=== PATIENT | female | born 1940 | race Caucasian/White ===

== ENCOUNTER 2023-03-05 12:16 | Emergency (ER) | payer MEDICARE, SELFPAY ==
--- NOTE | ~2023-03-05 | XR_ITS ---
EXAMINATION: XR ankle RT min 3V DATE: 03/05/2023 13:24 INDICATION: Right ankle pain and swelling. TECHNIQUE: 4 views of right ankle were obtained. COMPARISON: None. FINDINGS: Bone alignment is normal. No fracture. Joint spaces are normal. There is heterotopic ossifi cation distal to medial malleolus and dorsal to proximal aspect of navicular. There are enthesophytes at the posterior and plantar aspects of calcaneal tuberosity. Ankle soft tissue swelling is noted. IMPRESSION: 1. No acute fracture. 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 IMPRESSION: 1. No acute fracture.
[2023-03-05 12:18] VITALS: BP 134/55; PULSE 61; RESP 18; TEMP 36.6; O2SAT 98
--- NOTE | 2023-03-05 14:15 | PC.NURSE ---
Lesly Marie NP reports pt and pt daughter requesting to leave AMA. AMA forms were collected but on the way to bring them to pt room, pt was not in the room and was seen walking out the front doors before signing. daughter stand by assist and gait was steady.
--- NOTE | 2023-03-05 20:16 | ED.GENADULT ---
HPI - General Adult General Chief complaint: Extremity Injury, Lower Stated complaint: right foot pain/injury Time Seen by Provider: 03/05/23 13:27 History of Present Illness HPI narrative: Simran Mercer is an 82 y/o female who presents today with her daughter. Patient reports she was getting up out of her recliner and rolled her right foot under her then fell on to bottom and leaned against a planter. She denies hitting her head/ denies LOC/ denies taking any blood thinners. complains of pain to right ankle. Related Data Allergies Allergy/AdvReac Type Severity Reaction Status Date / Time No Known Allergies Allergy Unknown Unverified 07/03/05 20:44 Review of Systems Review of Systems: CONSTITUTIONAL: Denies fever, chills, or sweats. EYES: Denies visual changes, redness, or discharge. ENT: Denies rhinorrhea, congestion, sore throat, or otalgia. CARDIOVASCULAR: Denies chest pain, palpitations, or edema. RESPIRATORY: Denies cough or dyspnea. GASTROINTESTINAL: Denies abdominal pain, nausea, vomiting, or diarrhea. GENITOURINARY: Denies dysuria or hematuria. SKIN: Denies rash or itching. MUSCULOSKELETAL: fall 3 days ago/ pain to right ankle NEUROLOGIC: Denies headache, numbness, dizziness, or weakness. PSYCHIATRIC: Denies anxiety or depression. Exam Narrative: GENERAL: Well-appearing, well-nourished, and in no acute distress. HEAD: Normocephalic, atraumatic. EYES: PERRLA and EOMI. ENT: Nares clear, no rhinorrhea or epistaxis. Mucous membranes moist. Oropharynx without tonsillar hypertrophy exudate or other lesions. Bilateral TMs pearly barnett nonbulging NECK: Supple. No adenopathy or masses. No carotid bruits or JVD CHEST: Clear to auscultation. No respiratory distress. No wheezes rales or rhonchi HEART: Regular rate and rhythm. No murmur heard. Normal peripheral pulses. ABDOMEN: Soft, nontender, nondistended, normal active bowel sounds. EXTREMITIES: ecchymosis and swelling noted to right foot/ankle/ pulses present/ SKIN: Warm, dry, no rash. NEURO: No focal deficits. Alert and oriented x3. PSYCH: Normal mood and affect. Patient Course Vital Signs Vital signs: Vital Signs Temperature 36.6 C 03/05/23 12:18 Pulse Rate 61 03/05/23 12:18 Respiratory Rate 18 03/05/23 12:18 Blood Pressure 134/55 L 03/05/23 12:18 Pulse Oximetry 98 03/05/23 12:18 Oxygen Delivery Room Air 03/05/23 12:18 Temperature 36.6 C 03/05/23 12:18 Pulse Rate 61 03/05/23 12:18 Respiratory Rate 18 03/05/23 12:18 Blood Pressure 134/55 L 03/05/23 12:18 Pulse Oximetry 98 03/05/23 12:18 Oxygen Delivery Room Air 03/05/23 12:18 Medical Decision Making MDM Narrative Medical decision making narrative: While attempting to assess pt and discussing that pt's ankle x ray is negative for fracture updated pt and her family that an x ray of her foot should be done to make sure her foot does not have anything broken This comment seemed to upset the daughter and she demanded that they will not wait any longer here for any more tests. I tried to evaluate for other injuries from the fall such as her cervical spine/hips/back and the daughter refused to allow me and states that the fall happened 3 days ago and she has been walking just fine since the fall and she will have her follow up with her PCP on Wednesday The daughter continued to state that she (herself not mother) is a diabetic she has not eaten all day and she will be taking her mother from the ER now The daughter did become aggressive and raised her voice about the frustration of the wait. I apologized for the wait and encouraged her to stay for more imaging/ pain control and that if she left it would be AMA. The daughter stated 'its not your fault, I am not made at you - I just can't stay in this room any longer The daughter demanded paperwork to leave and stated she would not stay I tried to talk to the patient regarding this and the patient apologized for
== END 2023-03-05 14:20 | disposition left against medical advice (07) ==
PROVIDERS: Emergency Provider Nurse Practitioner Family; PCP Internal Medicine
DX: S93.401A Sprain of unspecified ligament of right ankle, initial encounter (principal); S96.911A Strain of unspecified muscle and tendon at ankle and foot level, right foot, initial encounter; W01.198A Fall on same level from slipping, tripping and stumbling with subsequent striking against other object, initial encounter; X50.9XXA Other and unspecified overexertion or strenuous movements or postures, initial encounter
CPT/HCPCS: 73610; 99283

== ENCOUNTER 2024-10-30 11:16 | Emergency (ER) | payer MEDICARE, SELFPAY ==
[2024-10-30 11:47] VITALS: BP 136/65; PULSE 75; RESP 16; TEMP 36.6; O2SAT 97
--- NOTE | 2024-10-30 11:54 | ED_ITS ---
HPI - Dental/Oral General Chief complaint: Dental/Oral <Elvira Anand APRN - Last Filed: 10/30/24 12:00> Stated complaint: dental pain <Elvira Anand APRN - Last Filed: 10/30/24 12:00> Time Seen by Provider: 10/30/24 11:45 <Elvira Anand APRN - Last Filed: 10/30/24 12:00> Focused HPI: Patient is an 84-year-old female who presents to the ER with complaints of a dental abscess. She reports her lower jaw pain started approximately 2 days ago. Patient reports she has a dentist who she is supposed to see and 2 days. She endorses significant left lower jaw swelling and associated pain. Patient denies other medical history related to this ER visit, although according to her records she does take medication to treat high cholesterol and high blood pressure. She denies any difficulty breathing, neck stiffness, recent fevers, headache, neck swelling. GENERAL: Well-appearing, well-nourished, and in no acute distress. HEAD: Normocephalic, atraumatic. L sided lower palpable jaw swelling CHEST: Clear to auscultation. ?No respiratory distress. HEART: Regular rate and rhythm.? NEURO: ?Alert and oriented x3. Patient screened in triage and initial orders placed.? ?Additional care and disposition to be based upon?diagnostic testing and treatment. <Elvira Anand APRN - Last Filed: 10/30/24 12:00> Related Data Home medications: Home Medications ?Medication ?Instructions ?Recorded ?Confirmed ?Last Taken ?Type ascorbic acid (vitamin C) 1,000 mg 1 g PO DAILY 01/03/24 07/06/24 Unknown History tablet (Vitamin C With Adelita Hips) aspirin 81 mg tablet,delayed 81 mg PO DAILY 01/03/24 07/06/24 Unknown History release <Elvira Anand APRN - Last Filed: 10/30/24 12:00> Allergies/adverse reactions: Allergies Allergy/AdvReac Type Severity Reaction Status Date / Time No Known Allergies Allergy Unknown Unverified 07/06/24 08:53 <Elvira Anand APRN - Last Filed: 10/30/24 12:00> PMFSH Family History Family History: Family History (Updated 01/03/24 @ 09:47 by Minerva Herzog) Father Hypertension Mother Hypertension Cancer Sibling Alcoholism Diabetes mellitus Hypertension <Elvira Anand APRN - Last Filed: 10/30/24 12:00> Social History Social History: Social History (Updated 01/03/24 @ 09:49 by Minerva Herzog) Smoking status: Never smoker Alcohol intake: never Substance use: never Substance use type: does not use <Elvira Anand APRN - Last Filed: 10/30/24 12:00> Exam Narrative: APPEARANCE: No apparent distress. Head: atraumatic. Swelling along the left lower jaw line, floor of the mouth is soft, no difficulty speaking or swallowing EYES: EOMI, NOSE: Atraumatic NECK: Trachea midline RESPIRATORY: No increased rate of breathing CARDIOVASCULAR: RRR, ABDOMINAL: Non-distended MUSCULOSKELETAl: No obvious deformities NEURO: Alert. Moving 4/4 extremities SKIN:: Warm, dry. Normal color PSYCHIATRIC: Normal affect <Archie Landaverde MD - Last Filed: 10/30/24 13:37> Course Vital Signs Vital signs: Vital Signs Temperature 97.8 F 10/30/24 11:47 Pulse Rate 75 10/30/24 11:47 Respiratory Rate 16 10/30/24 11:47 Blood Pressure 136/65 10/30/24 11:47 Pulse Oximetry 97 10/30/24 11:47 Oxygen Delivery Room Air 10/30/24 11:47 Temperature 97.8 F 10/30/24 11:47 Pulse Rate 75 10/30/24 11:47 Respiratory Rate 16 10/30/24 11:47 Blood Pressure 136/65 10/30/24 11:47 Pulse Oximetry 97 10/30/24 11:47 Oxygen Delivery Room Air 10/30/24 11:47 <Elvira Anand APRN - Last Filed: 10/30/24 12:00> Vital Signs Temperature 97.8 F 10/30/24 11:47 Pulse Rate 75 10/30/24 11:47 Respiratory Rate 16 10/30/24 11:47 Blood Pressure 136/65 10/30/24 11:47 Pulse Oximetry 97 10/30/24 11:47 Oxygen Delivery Room Air 10/30/24 11:47 Temperature 97.8 F 10/30/24 11:47 Pulse Rate 75 10/30/24 11:47 Respiratory Rate 16 10/30/24 11:47 Blood Pressure 136/65 10/30/24 11:47 Pulse Oximetry 97 10/30/24 11:47 Oxygen Delivery Room Air 10/30/24 11:47 <Archie Landaverde MD - Last Filed: 10/30/24 13:37> MDM - Dental/Oral MDM Narrative Medical decision making narrative: -Course: 84-year-old female presenting with dental pain. Given pain medication antibiotics. Follow-up with dentist tomorrow. <Archie Landaverde MD - Last Filed: 10/30/24 13:37> Discharge Plan Discharge Clinical Impression: Dental infection <Elvira Anand APRN - Last Filed: 10/30/24 12:00> Patient Disposition: Home, Self-Care <Elvira Anand APRN - Last Filed: 10/30/24 12:00> Condition: Stable <Elvira Anand APRN - Last Filed: 10/30/24 12:00> Instructions: Antibiotic Form, Toothache (ED) <Elvira Anand APRN - Last Filed: 10/30/24 12:00> Additional Instructions: Please take antibiotics as instructed. Follow up with her dentist tomorrow. Use Tylenol for pain control. <Elvira Anand APRN - Last Filed: 10/30/24 12:00> Patient Language: Armenian <Elvira Anand APRN - Last Filed: 10/30/24 12:00> Prescriptions: New acetaminophen 500 mg tablet 1,000 mg PO TID PRN (Reason: loreta) 7 Days Qty: 42 0RF amoxicillin-pot clavulanate 875-125 mg tablet 1 tablet PO Q12H Qty: 20 0RF No Action ascorbic acid (vitamin C) [Vitamin C With Adelita Hips] 1,000 mg tablet 1 g PO DAILY citalopram 20 mg tablet 20 mg PO DAILY Qty: 90 1RF aspirin 81 mg tablet,delayed release (DR/EC) 81 mg PO DAILY diltiazem HCl 240 mg capsule,extended release 24 hr See Rx Instructions .ROUTE .COMPLEX Qty: 180 0RF Dose Instruction: Take 1 capsule by mouth twice daily Rx Instructions: Take 1 capsule by mouth twice daily furosemide 20 mg tablet See Rx Instructions .ROUTE .COMPLEX Qty: 90 0RF Dose Instruction: Take 1 tablet by mouth once daily Rx Instructions: Take 1 tablet by mouth once daily atorvastatin 40 mg tablet See Rx Instructions .ROUTE .COMPLEX Qty: 90 0RF Dose Instruction: Take 1 tablet by mouth once daily Rx Instructions: Take 1 tablet by mouth once daily <Elvira Anand APRN - Last Filed: 10/30/24 12:00> Follow-up/Referrals: Le Wolfe APRN [Primary Care Provider] - <Elvira Anand APRN - Last Filed: 10/30/24 12:00> Stand Alone Forms: Work/School Release IP <Elvira Anand APRN - Last Filed: 10/30/24 12:00>
[2024-10-30] MEDS: KETOROLAC 30 MG/ML VIAL (*BKC) IM (12:16)
[2024-10-30] MEDS: AMOXICILLIN/CLAVULANATE K 875-125 MG TAB 1 TABLET PO (12:17)
--- OUTSIDE RECORDS SUMMARY | 2024-10-30 12:18 | XMS_ITS | Continuity of Care Document ---
Author Organization [facility] Address [address] [place] [address] [address] [place] [address] Phone Care Team Providers Care Warp Worker Name Role Phone Mccain OD, Kwame Unavailable Unavailable Procedures Procedure Date Eye Exam & Treatment No Script Eye Exam & Treatment Refraction Advance Directives Directive Yes / No Effective Date File Name No Information Encounters Encounter Description Practice Location Reason(s) For Visit Diagnoses Date Provider Providers Copied on Encounter [facility], [address] [place] [address] [address], [place], [place], [id number], tel:[phone] [facility] No Information Oct-0 8-200 9 Mccain OD Kwame. [address] , [address], [place], [place], [facility] [place]. tel:[phone] [facility], [address] [place] [address] [address], [place], [place], [id number], tel:[phone] [facility] No Information February-0 2-200 8 Mccain OD Kwame. [address] , [address], [place], [address], [place]. tel:[phone] Family History Family Member Type Diagnosis Age At Onset No Information Payers Payer name Insurance type Covered republican ID Authoriza tion(s) Medicare [facility] [id number] Social History Type Description Quantity Date Captured Comments Sex Female Smoking Status No Information Chief Complaint And Reason For Visit No Information Reason For Referral Reason For Referral No Information History Of Present Illness Encounter Date Complaint History Of Prese nt Illness No Information Functional Status Date Functional Assessmen t No Information Instructions Date Instruction Additional Infor mation No Information Assessments Type Assessment Date No Information Patient Care Teams Name Effective Dates (start - stop) Status Members No Information
--- OUTSIDE RECORDS SUMMARY | 2024-10-30 12:18 | XMS_ITS | CONTINUITY OF CARE DOCUMENT ---
Author Name dawson osman Address Unknown Organization [facility] Address [address] [address] [address] [place] [address] Phone [phone] Care Team Providers Care Armature Bander Name Role Phone Obie ROSSI, Pascual Unavailable BOLIVAR SOTO MD Unavailable [phone] BOLIVAR SOTO MD Unavailable PROBLEMS Condition Status Date Provider Notes Afib active Pascual Ragland MD Palpitations active Pascual Ragland MD INSURANCE PROVIDERS Payer name Policy type / Coverage type [place] red democrat ID [facility] [id number] [place] [id number] HISTORY OF PROCEDURES Procedure Date Procedure Name Provider Procedure Notes S tatus ZIO Event Hookup Pascual Ragland MD completed
--- OUTSIDE RECORDS SUMMARY | 2024-10-30 12:45 | XMS_ITS | CONTINUITY OF CARE DOCUMENT ---
Author Name dawson osman Address Unknown Organization [facility] Address [address] [facility] [address] [place] [address] Phone [phone] Care Team Providers Care Boom Stick Worker Name Role Phone Obie ROSSI, Pascual Unavailable [phone] BOLIVAR SOTO MD Unavailable BOLIVAR SOTO MD Unavailable PROBLEMS Condition Status Date Provider Notes Afib active Pascual Ragland MD Palpitations active Pascual Ragland MD INSURANCE PROVIDERS Payer name Policy type / Coverage type [place] red democrat ID [facility] [id number] [place] Medicare [id number] HISTORY OF PROCEDURES Procedure Date Procedure Name Provider Procedure Notes S tatus ZIO Event Hookup Pascual Ragland MD completed
--- OUTSIDE RECORDS SUMMARY | 2024-10-30 12:45 | XMS_ITS | Continuity of Care Document ---
Author Organization [facility] Address [address] [place] [address] [address] [place] [address] Phone Care Team Providers Care Tree Tapping Laborer Name Role Phone Mccain OD, Kwame Unavailable Unavailable Procedures Procedure Date Eye Exam & Treatment No Script Eye Exam & Treatment Refraction Advance Directives Directive Yes / No Effective Date File Name No Information Encounters Encounter Description Practice Location Reason(s) For Visit Diagnoses Date Provider Providers Copied on Encounter [facility], [address] [place] [address] [address], [place], [place], [id number], tel:[phone] [facility] No Information Oct-0 8-200 9 Mccain OD Kwame. [address] , [address], [place], [place], [facility], [place]. tel:[phone] [facility], [address] [place] [address] [address], [place], [place], [id number], tel:[phone] [facility] No Information February-0 2-200 8 Mccain OD Kwame. [address] , [address], [place], [address], [place]. tel:[phone] Family History Family Member Type Diagnosis Age At Onset No Information Payers Payer name Insurance type Covered libertarian ID Authoriza tion(s) Medicare [facility] [id number] Social History Type Description Quantity Date Captured [...]
[2024-10-30 13:46] VITALS: BP 130/88; PULSE 78; RESP 18; TEMP 36.6; O2SAT 98
== END 2024-10-30 13:46 | disposition home or self-care (01) ==
PROVIDERS: Emergency Provider Emergency Medicine; PCP Nurse Practitioner Family
DX: K04.7 Periapical abscess without sinus (principal)
CPT/HCPCS: 96372; 99284; A9270; J1885

== ENCOUNTER 2025-09-11 17:42 | Inpatient (IN) | payer MEDICARE, SELFPAY ==
[2025-09-11] VITALS (12 sets, daily range): BP systolic 141–164; BP diastolic 56–69; PULSE 64–88; RESP 18–20; TEMP 36.9–38; O2SAT 92–99; BMI 28.0
--- NOTE | ~2025-09-11 | XR_ITS ---
EXAM/PROCEDURE: XR surgery orthopedic HISTORY: LEFT HIP PINNING COMPARISON: None available. Technique: Fluoroscopic images provided for orthopedic procedure. Fluoroscopy time: 29.0 seconds DAP: 1.6504 tori per square centimeter IMPRESSION: Fluoroscopic images per orthopedic service. No radiologist present. See also operative/surgical notes for complete details. 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
--- NOTE | ~2025-09-11 | XR_ITS ---
EXAMINATION: XR hip LT 2V w AP pelvis DATE: 09/11/2025 18:10 INDICATION: Trauma due to fall. TECHNIQUE: AP pelvis and 3 views of left hip were obtained. COMPARISON: None. FINDINGS: Diffuse osteopenia of bones. Acute, impacted fracture of the subcapital femoral neck is noted at the left hip. IMPRESSION: 1. Acute impacted fracture of the femoral neck at the left hip. Osteopenic bones. Please correlate with DEXA densitometry. Reviewed, dictated and finalized at location T. 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 Acute impacted fracture of the femoral neck at the left hip. Osteopenic bone s. Please correlate with DEXA densitometry.
--- NOTE | ~2025-09-11 | XR_ITS ---
EXAMINATION: XR chest 1V DATE: 09/11/2025 18:10 INDICATION: Trauma. TECHNIQUE: A single frontal view of the chest was obtained. COMPARISON: None. FINDINGS: Heart size is upper normal. Lungs are clear of acute processes. IMPRESSION: 1. No acute pulmonary findings. Reviewed, dictated and finalized at location T. [facility]
--- NOTE | 2025-09-11 18:13 | PC.NURSE ---
pts daughter sindy called for an update. advised her that xrays were just taken and i would give her a call back once we have those results.
[2025-09-11 18:34] LABS: Hematocrit 41.4 % (37.0-47.0); Hemoglobin 13.8 g/dL (12.0-15.0); Immature Granulocyte Percent A 0.6 % (0-0.5); Lymphocytes Absolute Auto 1.23 K/mm3 (0.9-3.2); Mean Corpuscular HGB Conc 33.3 g/dl (32-36); Mean Corpuscular Hemoglobin 29.7 pg (26-34); Mean Corpuscular Volume 89.0 fl (80-100); Nucleated Red Blood Cells Absolute Auto 0.000 K/mm3 (0.0-0.012); Nucleated Red Blood Cells Perc 0.0 % (0.0-0.2); Platelet Count Result 198 k/mm3 (150-375); Red Blood Count 4.65 M/mm3 (4.2-5.4); White Blood Count 15.9 K/mm3 (4.5-10.0)
[2025-09-11] MEDS: HYDROcodone/acetaminophen (*CRX) 5-325 MG TABLET 1 TAB PO (18:36)
[2025-09-11 18:45] LABS: Anion Gap 10 mmol/L (4-12); Blood Urea Nitrogen 15 mg/dL (7-17); Calcium 9.3 mg/dL (8.4-10.2); Carbon Dioxide 23 mmol/L (22-30); Chloride 104 mmol/L (98-107); Estimated Glomerular Filt Rate 58; Glucose 132 mg/dL (65-110); Potassium 4.7 mmol/L (3.4-5.0); Sodium 137 mmol/L (137-145)
[2025-09-11 18:53] LABS: INR 1.1; Prothrombin Time 13.9 Seconds (11.1-14.7)
[2025-09-11 18:54] LABS: Partial Thromboplastin Time 23.1 Seconds (22.3-36.8)
--- NOTE | 2025-09-11 19:14 | ED.FALL ---
HPI - Fall General Chief Complaint: Fall Stated Complaint: fall, hip pain Time Seen by Provider: 09/11/25 17:53 History of Present Illness HPI Narrative: Patient was lying in her recliner when she accidentally fell out, landing on her left hip. She did not hit her head, did not injure any of her other extremities. Has pain to her left hip especially worse with movement Related Data Home Medications ?Medication ?Instructions ?Recorded ?Confirmed ?Last Taken ?Type ascorbic acid (vitamin C) 1,000 mg 1 g PO DAILY 01/03/24 07/26/25 Unknown History tablet (Vitamin C With Adelita Hips) aspirin 81 mg tablet,delayed 81 mg PO DAILY 01/03/24 07/26/25 Unknown History release cetirizine 10 mg tablet (Zyrtec) 10 mg PO DAILY PRN 07/26/25 07/26/25 Unknown History Allergies Allergy/AdvReac Type Severity Reaction Status Date / Time No Known Allergies Allergy Unknown Verified 09/11/25 17:48 Review of Systems Review of Systems: All systems reviewed & are unremarkable except as noted in HPI and below PMFSH Family History Family History Father Hypertension Mother Hypertension Cancer Sibling Alcoholism Diabetes mellitus Hypertension Social History Social History Smoking status: Never smoker Alcohol intake: never Substance use: never Substance use type: does not use Exam Narrative: EXAMINATION OF ORGAN SYSTEMS/BODY AREAS: Constitutional: Vital signs per nursing GENERAL: Appears quite uncomfortable HEAD: Normal with no signs of head trauma. EYES: EOMI, conjunctiva normal ENT: Hearing grossly intact LUNGS: Nonlabored breathing. HEART: Normal left DP pulse ABD: [Soft], [nontender to palpation] EXT: Significant tenderness to left hip SKIN: Some old-appearing bruises to right leg NEURO: [Alert. No gross focal sensory or strength deficits.] PSYCH: Normal affect Course Vital Signs Vital signs: Vital Signs Temperature 98.4 F 09/11/25 17:39 Pulse Rate 64 09/11/25 17:39 Respiratory Rate 18 09/11/25 17:39 Blood Pressure 141/69 H 09/11/25 17:39 Pulse Oximetry 96 09/11/25 17:39 Oxygen Delivery Room Air 09/11/25 17:39 Temperature 98.4 F 09/11/25 17:39 Pulse Rate 73 09/11/25 21:01 Respiratory Rate 20 09/11/25 21:01 Blood Pressure 156/62 H 09/11/25 21:01 Pulse Oximetry 95 09/11/25 21:01 Oxygen Delivery Room Air 09/11/25 17:39 MDM MDM Narrative Medical decision making narrative: Patient presents here after falling out of her recliner and landing on her left hip, did not hit her head, is not having pain anywhere other than to her hip. Neurovascularly intact, significant tenderness to the left hip, x-ray on my independent interpretation does show left hip fracture. Discussed with orthopedist with plan for surgery tomorrow. Patient is comfortable with this plan. Hospitalist agreeable to admission. Differential Diagnosis Differential Diagnosis: Fracture, sprain Lab Data 09/11/25 18:27 09/11/25 18:27 Labs: Lab Results 09/11/25 Range/Units 18:27 WBC 15.9 H (4.5-10.0) K/mm3 RBC 4.65 (4.2-5.4) M/mm3 Hgb 13.8 (12.0-15.0) g/dL Hct 41.4 (37.0-47.0) % MCV 89.0 (80-100) fl MCH 29.7 (26-34) pg MCHC 33.3 (32-36) g/dl RDW 14.8 H (11.5-14.5) % Plt Count 198 (150-375) k/mm3 MPV 10.5 H (7.4-10.4) fl Immature Gran % (Auto) 0.6 H (0-0.5) % Neut % (Auto) 85.2 H (45.5-73.1) % Lymph % (Auto) 7.8 L (18.3-44.2) % [place] % (Auto) 6.1 (2.6-8.5) % Eos % (Auto) 0.0 (0-4.4) % Baso % (Auto) 0.3 (0.2-1.2) % Lymph # (Auto) 1.23 (0.9-3.2) K/mm3 [place] # (Auto) 1.0 H (0.1-0.6) K/mm3 Eos # (Auto) 0.0 (0-0.3) K/mm3 Baso # (Auto) 0.0 (0.0-0.1) K/mm3 Abs Immat Gran (auto) 0.09 H (0.00-0.031) K/mm3 Absolute Neuts (auto) 13.5 H (1.3-6.7) K/mm3 Absolute Nucleated RBC 0.000 (0.0-0.012) K/mm3 Nucleated RBC % 0.0 (0.0-0.2) % PT 13.9 (11.1-14.7) Seconds INR 1.1 APTT 23.1 (22.3-36.8) Seconds Sodium 137 (137-145) mmol/L Potassium 4.7 (3.4-5.0) mmol/L Chloride 104 (98-107) mmol/L Carbon Dioxide 23 (22-30) mmol/L Anion Gap 10 (4-12) mmol/L BUN 15 (7-17) mg/dL Creatinine 0.91 (0.7-1.0) mg/dL Estim Creat Clear Calc Not Reportable Estimated GFR 58 L (59 - ) Glucose 132 H (65-110) mg/dL Calcium 9.3 (8.4-10.2) mg/dL Blood Type O Negative Antibody Screen Negative Imaging Data Radiologist's impression: ITS Impressions Hip/Pelvis X-Ray 09/11/25 18:12 IMPRESSION: 1. Acute impacted fracture of the femoral neck at the left hip. Osteopenic bones. Please correlate with DEXA densitometry. Chest X-Ray 09/11/25 18:15 IMPRESSION: 1. No acute pulmonary findings. Discharge Plan Discharge Clinical Impression: Closed hip fracture Patient Disposition: Still a Patient Condition: Stable
--- NOTE | 2025-09-11 21:00 | ECG_ITS ---
Test Date: 2025-09-11 21:26:06 Measurements Intervals [place] Rate: 77 P: 0 DE: 0 QRS: -38 QRSD: 90 T: 86 QT: 385 QTc: 437 Interpretive Statements ATRIAL FIBRILLATION LEFT AXIS DEVIATION ANTEROSEPTAL INFARCT, AGE INDETERMINATE BORDERLINE ST-T WAVE ABNORMALITY- HIGH LATERAL LEADS BASELINE ARTIFACT- I, II, III, AVR, AVL, AVF, V2, V4-V6 ABNORMAL ECG No previous ECG available for comparison Electronically Signed On 09-12-2025 06:22:20 MACHINIST JOB SETTER by Niranjan Landaverde D.O.
--- NOTE | 2025-09-11 22:15 | WPCEDHO ---
ED Hand Off Checklist All vitals saved:yes IV Site documented:yes All med administrations documented:yes Triage Note Triage Note Pt. to ED by [facility] from 09/11/25 17:39 home. Pt. states she slipped on hard wood floor this morning, landing on her L. hip. Pt. has only been able to take a few steps since the fall. -hit head, -anticoagulants, -LOC. Bruising to lateral R. thigh. Pain to L. hip that radiates down her L. leg . No obvious deformity or shortening of her leg. Pt. is A& Ox4. Allergies No Known Allergies Allergy (Unknown, Verified 09/11/25 17:48) PER CARRIE Family History (Last Reviewed 07/26/25 @ 07:06 by Jasmyn Bahena [facility]) Father Hypertension Mother Hypertension Cancer Sibling Alcoholism Diabetes mellitus Hypertension Administered/Completed Medications Discontinued Medications Hydrocodone Bitart/Acetaminophen (Hydrocodone/Acetaminophen (*Crx) 5-325 Mg Tablet) 1 tab PO ONCE STA Stop: 09/11/25 18:14 Last Admin: 09/11/25 18:36 Dose: 1 tab Documented By: ROVERTO Notes 09/11/25 18:13 Nurse Note by Tessie Sosa pts daughter sindy called for an update. advised her that xrays were just taken and i would give her a call back once we have those results. Initialized on 09/11/25 18:13 - END OF NOTE Last Vital Signs Temperature 98.4 F 09/11/25 17:39 Pulse Rate 73 09/11/25 21:01 Respiratory Rate 20 09/11/25 21:01 Pulse Oximetry 92 09/11/25 21:46 Blood Pressure 164/56 H 09/11/25 21:46 Blood Pressure Mean 87 09/11/25 21:46 Blood Pressure Position Sitting 09/11/25 17:39 Oxygen Delivery Room Air 09/11/25 17:39 Last Result - Abnormals Only WBC 15.9 K/mm3 (4.5-10.0) H 09/11/25 18:27 RDW 14.8 % (11.5-14.5) H 09/11/25 18:27 MPV 10.5 fl (7.4-10.4) H 09/11/25 18:27 Immature Gran % (Auto) 0.6 % (0-0.5) H 09/11/25 18:27 Neut % (Auto) 85.2 % (45.5-73.1) H 09/11/25 18:27 Lymph % (Auto) 7.8 % (18.3-44.2) L 09/11/25 18:27 [place] # (Auto) 1.0 K/mm3 (0.1-0.6) H 09/11/25 18:27 Abs Immat Gran (auto) 0.09 K/mm3 (0.00-0.031) H 09/11/25 18:27 Absolute Neuts (auto) 13.5 K/mm3 (1.3-6.7) H 09/11/25 18:27 Estimated GFR 58 (59-) L 09/11/25 18:27 Glucose 132 mg/dL (65-110) H 09/11/25 18:27 Most Recent Suicide Severity Rating Suicide Severity Rating NO RISK INDICATED 09/11/25 17:39
[2025-09-11] MEDS: MORPHINE SULFATE (*CRX) 4 MG/ML INJ 2 MG IV PUSH (23:06)
--- NOTE | 2025-09-11 23:21 | PM.CNOR ---
Assessment and Plan Assessment and plan (1) Left displaced femoral neck fracture: Code(s): S72.002A - Fracture of unspecified part of neck of left femur, initial encounter for closed fracture Status: Acute Assessment and Plan: New patient evaluation for chief complaint fall with left hip fracture. History, physical exam and radiographs reviewed with the patient. Discussed the condition, nature, etiology and course of natural history with the patient. Treatment options including surgical and nonoperative treatment were reviewed. Risks and benefits of each as well as alternatives reviewed. The patient's questions were answered. Conservative treatment ice, pain control, mech dvt prxs. (2) Closed hip fracture: Qualifiers: Encounter type: initial encounter Laterality: left Qualified Code(s): S72.002A - Fracture of unspecified part of neck of left femur, initial encounter for closed fracture Code(s): S72.009A - Fracture of unspecified part of neck of unspecified femur, initial encounter for closed fracture Status: Acute Plan Discussed nonoperative and operative treatment options with the patient. Risks and benefits of each as well as alternatives were reviewed. All of the patient's questions were answered. The risks of surgery reviewed including but not limited to: Neurovascular damage, wound complication, infection, blood clot, pulmonary embolus, stroke, myocardial infarction, and anesthetic risks up to and including . Continued pain and possible dysfunction were explained. Specific risks of the procedure including later recurrence of deformity. No guarantees were offered. If hardware used, discussed risk of failure/ breakage and possible need for removal. If complications occur, the patient understands the need for further treatment, possible further surgery. Patient verbalizes understanding and wishes to proceed. PLAN: Left hip pinning History of Present Illness HPI Consult date: 09/12/25 Requesting physician: Marina eVras MD Chief complaint: hip fx Narrative: 85yo woman independent ambulator. Caught foot on rug and lost balance falling onto left hip. Unable to bear weight. Found to have hipe fracture and admitted to hospital for same. Review of Systems Constitutional: Constitutional: Denies fever(s) Eyes: Eyes: Denies blurry vision ENT: Reports Normal hearing present Cardiovascular: Cardiovascular: Denies chest pain and Denies dyspnea Respiratory: Respiratory: Denies dyspnea and Denies wheezing Gastrointestinal: Gastrointestinal: Denies abdominal pain Genitourinary: Genitourinary: Denies urinary urgency Musculoskeletal: Musculoskeletal: Reports as per HPI and Denies numbness Integumentary/Breasts: Skin/Breast: Denies changing lesions and Denies sores Neurologic: Reports Normal hearing present, Denies behavioral changes, Denies confusion, Denies numbness and Denies convulsions Psychiatric: Psychiatric: Denies behavioral changes, Denies confusion and Denies hallucinations Endocrine: Endocrine: Denies heat intolerance Hematologic/Lymphatic: Hematologic/Lymphatic: Denies easy bleeding Allergic/Immunologic: Allergic/Immunologic: Denies wheezing PMF Past Medical History Medical History (Updated 09/11/25 @ 23:31 by Brian Padgett MD) Left displaced femoral neck fracture Family History Family History Father Hypertension Mother Hypertension Cancer Sibling Alcoholism Diabetes mellitus Hypertension Social History Social History Smoking status: Never smoker Alcohol intake: never Substance use: never Substance use type: does not use Lack of Transportation: No Lack of Food: Never True Current Housing: I Have Housing Concerned About Future Housing: No Difficulty Paying Gas/Electric Bills: No Difficulty Paying for Meds: No Currently Unemployed: No Education: Grade School Difficulty w/ Childcare or Family Care: No Spiritual care concerns: No Meds Home Medications and Allergies Home Medications ?Medication ?Instructions ?Recorded ?Confirmed ?Type ascorbic acid (vitamin C) 1,000 mg 1 g PO DAILY 01/03/24 09/11/25 History tablet (Vitamin C With Adelita Hips) aspirin 81 mg tablet,delayed 81 mg PO DAILY 01/03/24 09/11/25 History release acetaminophen 500 mg tablet 1,000 mg (2 x 500 mg) PO TID PRN 10/30/24 09/11/25 Rx loreta 7 days #42 tabs citalopram 20 mg tablet 20 mg PO DAILY #90 tabs 06/07/25 09/11/25 Rx atorvastatin 40 mg tablet See Rx Instructions .Route 07/03/25 09/11/25 Rx .COMPLEX #90 tabs diltiazem HCl 240 mg capsule,24 See Rx Instructions .Route 07/03/25 09/11/25 Rx hr,extended release .COMPLEX #180 caps cetirizine 10 mg tablet (Zyrtec) 10 mg PO DAILY PRN allergy symptoms 07/26/25 09/11/25 History Allergies Allergy/AdvReac Type Severity Reaction Status Date / Time No Known Allergies Allergy Unknown Verified 09/11/25 23:25 Vital Signs Vital Signs - 24 hr 09/11/25 17:39 09/11/25 17:45 09/11/25 17:47 Temperature 98.4 F Pulse Rate 64 Respiratory Rate 18 Blood Pressure 141/69 H 141/69 H Pulse Oximetry 96 99 99 Oxygen Delivery Room Air 09/11/25 18:11 09/11/25 18:15 09/11/25 18:27 Temperature Pulse Rate Respiratory Rate 20 Blood Pressure 149/58 H Pulse Oximetry 98 99 94 Oxygen Delivery 09/11/25 18:31 09/11/25 18:46 09/11/25 19:01 Temperature Pulse Rate Respiratory Rate 20 20 Blood Pressure 147/64 H 154/58 H 153/60 H Pulse Oximetry 95 95 93 Oxygen Delivery 09/11/25 21:01 09/11/25 21:46 Temperature Pulse Rate 73 Respiratory Rate 20 Blood Pressure 156/62 H 164/56 H Pulse Oximetry 95 92 Oxygen Delivery Exam Const: General: No confusion Orientation/consciousness: No confusion HENMT: Head: normal to inspection, normocephalic and atraumatic Eyes: Conjunctivae: conjunctivae normal Sclera: sclerae normal Neck: Neck: supple and nontender Chest: Chest palpation & inspection: normal inspection of the chest Resp: Effort & Inspection: normal respiratory effort and no audible wheezes Cardio: Rate: regular rate Rhythm: regular rhythm : General: Yes deferred Skin: General skin exam: no rashes or lesions noted Neuro: General: No confusion Extrem: General: capillary refill normal Right upper extremity: normal to inspection Left upper extremity: normal to inspection Right lower extremity: normal to inspection, hip/thigh Details: normal to inspection and normal ROM; no tenderness and no swelling, knee Details: no tenderness and no swelling, ankle Details: normal ROM (Able to flex and extend the ankle) and foot Details: vascular exam Details: dorsalis pedis pulse present and normal capillary refill, tendon exam (Moves all toes) and motor-sensory exam Details: light-touch normal Location: in all toes Left lower extremity: hip/thigh Details: tenderness Location: of the hip Location: laterally and anteriorly, swelling Location: of the hip and abnormal ROM Details: pain with passive ROM (Full motion deferred secondary to fracture) Details: with flexion, with internal rotation and with external rotation, ankle (no calf tenderness) Details: normal ROM (Able to flex/ extend ankle) and foot Details: toes with normal ROM (Moves all toes), vascular exam Details: dorsalis pedis pulse present and normal capillary refill and motor-sensory exam light-touch normal in all toes; no tenderness Psych: Affect: normal affect Results Labs 09/12/25 07:22 09/11/25 18:27 Labs: Abnormal lab results 09/11/25 Range/Units 18:27 WBC 15.9 H (4.5-10.0) K/mm3 RDW 14.8 H (11.5-14.5) % MPV 10.5 H (7.4-10.4) fl Immature Gran % (Auto) 0.6 H (0-0.5) % Neut % (Auto) 85.2 H (45.5-73.1) % Lymph % (Auto) 7.8 L (18.3-44.2) % [place] # (Auto) 1.0 H (0.1-0.6) K/mm3 Abs Immat Gran (auto) 0.09 H (0.00-0.031) K/mm3 Absolute Neuts (auto) 13.5 H (1.3-6.7) K/mm3 Estimated GFR 58 L (59 - ) Glucose 132 H (65-110) mg/dL H & H 09/11/25 Range/Units 18:27 Hgb 13.8 (12.0-15.0) g/dL Hct 41.4 (37.0-47.0) % Coagulation 09/11/25 Range/Units 18:27 INR 1.1 All other labs normal. Diagnostic results Hip x-ray: image reviewed (AP pelvis and left hip: Femoral neck fx with valgus impaction. Pelvis intact. Degenerative changes L spine)
[2025-09-12] VITALS (15 sets, daily range): BP systolic 114–146; BP diastolic 49–69; PULSE 79–107; RESP 16–22; TEMP 36.2–36.9; O2SAT 91–100
[2025-09-12] MEDS: MORPHINE SULFATE (*CRX) 4 MG/ML INJ 2 MG IV PUSH ×2 (01:42→10:34)
[2025-09-12 07:44] LABS: Hematocrit 40.0 % (37.0-47.0); Hemoglobin 13.1 g/dL (12.0-15.0); Immature Granulocyte Percent A 0.7 % (0-0.5); Lymphocytes Absolute Auto 1.37 K/mm3 (0.9-3.2); Mean Corpuscular HGB Conc 32.8 g/dl (32-36); Mean Corpuscular Hemoglobin 29.2 pg (26-34); Mean Corpuscular Volume 89.3 fl (80-100); Nucleated Red Blood Cells Absolute Auto 0.000 K/mm3 (0.0-0.012); Nucleated Red Blood Cells Perc 0.0 % (0.0-0.2); Platelet Count Result 176 k/mm3 (150-375); Red Blood Count 4.48 M/mm3 (4.2-5.4); White Blood Count 11.2 K/mm3 (4.5-10.0)
[2025-09-12 08:10] LABS: Anion Gap 5 mmol/L (4-12); Blood Urea Nitrogen 13 mg/dL (7-17); Calcium 8.5 mg/dL (8.4-10.2); Carbon Dioxide 26 mmol/L (22-30); Chloride 104 mmol/L (98-107); Estimated CRCL calculation 49 ml/min; Estimated Glomerular Filt Rate > 60; Glucose 110 mg/dL (65-110); Potassium 3.6 mmol/L (3.4-5.0); Sodium 135 mmol/L (137-145)
--- NOTE | 2025-09-12 08:20 | P.HP_ITS ---
H&P: HPI History of Present Illness Date/Time: 09/12/25 08:20 Chief Complaint: - fall - left hip pain Narrative: Patient is an 85 yo female with PMH of atrial fibrillation, depression, frequent falls who presents to the emergency department complaints of fall, left hip pain. Patient states she was sitting in her recliner in attempted to stand when her legs gave out from other her and she fell onto her left hip. Denies associated prodromal lightheadedness, syncope, head injury. She had immediate pain in her left hip. Denies numbness/tingling of the left lower extremity. Current rates pain 10/10 in severity. Denies recent fever, chills, chest pain, shortness a breath, nausea, vomiting, dysuria. In ED, WBC 15.9. X-ray pelvis showed acute impacted fracture of the femoral neck at the left hip. Chest x-ray no acute process. Patient admitted for further orthopedic evaluation and planned surgery today. Review of Systems Review of Systems: All systems reviewed & are unremarkable except as noted in HPI and below PMFSH Past Medical History Medical History (Updated 09/11/25 @ 23:31 by Brian Padgett MD) Left displaced femoral neck fracture Family History Family History Father Hypertension Mother Hypertension Cancer Sibling Alcoholism Diabetes mellitus Hypertension Social History Social History Smoking status: Never smoker Alcohol intake: never Substance use: never Substance use type: does not use Lack of Transportation: No Lack of Food: Never True Current Housing: I Have Housing Concerned About Future Housing: No Difficulty Paying Gas/Electric Bills: No Difficulty Paying for Meds: No Currently Unemployed: No Education: Grade School Difficulty w/ Childcare or Family Care: No Spiritual care concerns: No Meds Home Medications and Allergies Home Medications ?Medication ?Instructions ?Recorded ?Confirmed ?Type ascorbic acid (vitamin C) 1,000 mg 1 g PO DAILY 09/11/25 History tablet (Vitamin C With Adelita Hips) aspirin 81 mg tablet,delayed 81 mg PO DAILY 01/03/24 1 11/12/24 History release acetaminophen 500 mg tablet 1,000 mg (2 x 500 mg) PO T ID PRN 10/30/24 09/11/25 Rx loreta 7 days #42 tabs citalopram 20 mg tablet 20 mg PO DAILY #90 tabs 01/2609/11/25 Rx atorvastatin 40 mg tablet See Rx Instructions .Route 0 07/03/25 09/11/25 Rx .COMPLEX #90 tabs diltiazem HCl 240 mg capsule,24 See Rx Instructions .R oute 07/03/25 09/11/25 Rx hr,extended release .COMPLEX #180 caps cetirizine 10 mg tablet (Zyrtec) 10 mg PO DAILY PRN al lergy symptoms 07/26/25 09/11/25 History Allergies Allergy/AdvReac Type Severity Reaction Status Date / Time No Known Allergies Allergy Unknown Verified 09/11/25 23: Vital Signs Vital Signs - 24 hr 09/11/25 17:39 09/11/25 17:45 09/11/25 17:47 Temperature 98.4 F Pulse Rate 64 Respiratory Rate 18 Blood Pressure 141/69 H 141/69 H Pulse Oximetry 96 99 99 Oxygen Delivery Room Air 09/11/25 18:11 09/11/25 18:15 09/11/25 18:27 Temperature Pulse Rate Respiratory Rate 20 Blood Pressure 149/58 H Pulse Oximetry 98 99 94 Oxygen Delivery 09/11/25 18:31 09/11/25 18:46 09/11/25 19:01 Temperature Pulse Rate Respiratory Rate 20 20 Blood Pressure 147/64 H 154/58 H 153/60 H Pulse Oximetry 95 95 93 Oxygen Delivery 09/11/25 21:01 09/11/25 21:46 09/11/25 23:32 Temperature 100.4 F H Pulse Rate 73 88 Respiratory Rate 20 18 Blood Pressure 156/62 H 164/56 H 149/60 H Pulse Oximetry 95 92 93 Oxygen Delivery 09/12/25 05:34 Temperature 98.4 F Pulse Rate 93 Respiratory Rate 18 Blood Pressure 145/61 H Pulse Oximetry 93 Oxygen Delivery Exam Narrative: General: NAD Eyes: EOMI ENT: neck supple Cardiovascular: Regular rate and rhythm Respiratory: Clear to auscultation, respirations even and unlabored on RA Gastrointestinal: Soft, non tender Genitourinary: no suprapubic tenderness Musculoskeletal: No edema. Skin: warm, dry Neuro: Alert. Sensation intact bilateral lower extremities. Wiggles toes on bilateral feet. Psych: Mood appropriate Results Labs Labs: Short CBC 12/09/25 12/10/25 Range/Units 18:27 07:22 WBC 15.9 H 11.2 H (4.5-10.0) K/mm3 Hgb 13.8 13.1 (12.0-15.0) g/dL Hct 41.4 40.0 (37.0-47.0) % Plt Count 198 176 (150-375) k/mm3 BMP 09/11/25 09/12/25 18:27 07:22 Sodium 137 135 L Potassium 4.7 3.6 Chloride 104 104 Carbon Dioxide 23 26 BUN 15 13 Creatinine 0.91 0.83 Glucose 132 H 110 Calcium 9.3 8.5 Quality VTE Prophylaxis VTE prophylaxis: mechanical ordered Assessment and Plan Assessment and plan (1) Left displaced femoral neck fracture: Code(s): S72.002A - Fracture of unspecified part of neck of left femur, initial encounter for closed fracture Status: Acute Assessment and Plan: - fell standing from chair, mechanical in nature. - X-ray pelvis showed acute impacted fracture of the femoral neck at the left hip. -orthopedic surgery consulted. Planning for OR today -continue pain control, DVT prophylaxis per ortho recs -PT/OT when able (2) Chronic atrial fibrillation: Code(s): I48.20 - Chronic atrial fibrillation, unspecified Status: Acute Assessment and Plan: -continue home diltiazem, aspirin - not on anticoagulation due to history of frequent falls and advanced age (3) Hyperlipidemia: Qualifiers: Hyperlipidemia type: unspecified Qualified Code(s): E78.5 - Hyperlipidemia, unspecified Code(s): E78.5 - Hyperlipidemia, unspecified Status: Acute Assessment and Plan: -continue statin Plan Code status: no CPR or intubation, meds OK DVT prophylaxis: SCDs. per ortho post-op Dispo: TBD pending hospital course Prior Studies I have reviewed the following patient records and this information was taken into consideration when formulating the assessment and plan.: previous labs
--- NOTE | 2025-09-12 09:44 | ECHO_ITS ---
Patient Info Name: Simran Mercer Age: 85 years : 1940 Gender: Female Ht: 69 in Wt: 189 lbs BSA: 2.06 m2 HR: 93 bpm BP: 145 / 61 mmHg Technical Quality: Fair Exam Date: 09/12/2025 11:27 AM Patient Status: I Admit Date: 09/11/2025 Exam Type: CA echo dop color flow w con Complete two-dimensional, color flow and Doppler transthoracic echocardiogram is performed with contrast to opacify the left ventricle and to improve the deliniation of the left ventricle endocardial borders. Staff Referring Physician: Brian Padgett MD [place] Operator: Hayden Gabriel III Attending Provider: Emam Deng DO Contrast/Agitated Saline Contrast/Ag. Saline: Definity Amount: 2.00 ml Administered By: Hayden Gabriel III Existing IV Access: Yes IV Access Condition: patent with no signs of infiltration Summary 1. Left ventricular systolic function is hyperdynamic, estimated at >70. 2. There is mildly increased left ventricular wall thickness. 3. Left atrial chamber dimension is mildly enlarged. 4. There is mild mitral valve regurgitation. 5. There is mild tricuspid valve regurgitation. 6. No pulmonary hypertension, estimated pulmonary arterial systolic pressure is 35 mmHg. Left Ventricle Left ventricular chamber dimension is normal. Left ventricular systolic function is hyperdynamic, estimated at >70. There is mildly increased left ventricular wall thickness. Left ventricular septal wall motion is normal. The left ventricular diastolic function is abnormal. Right Ventricle Right ventricular chamber dimension is normal. Right ventricular systolic function is normal. Left Atria Left atrial chamber dimension is mildly enlarged. Right Atria Right atrial chamber dimension is normal. Aortic Valve The aortic valve is trileaflet. There is no aortic valve sclerosis. There is no aortic valve stenosis. There is no aortic valve regurgitation. Pulmonic Valve The pulmonic valve is normal. There is no pulmonic valve stenosis. There is no pulmonic regurgitation. Mitral Valve The mitral valve has normal leaflets. There is no mitral valve stenosis. There is mild mitral valve regurgitation. Tricuspid Valve The tricuspid valve leaflets are normal. There is no significant tricuspid valve stenosis. There is mild tricuspid valve regurgitation. No pulmonary hypertension, estimated pulmonary arterial systolic pressure is 35 mmHg. Pericardium/Pleural The pericardium appears normal. There is no pericardial effusion. Inferior Vena Cava Normal inferior vena cava with >50% collapse upon inspiration consistent with normal right atrial pressure, 5 mmHg. Aorta The aortic root size at the sinus of Valsalva is normal. The prox ascending aorta size is normal. Left Ventricular Outflow Tract Name Value Normal LVOT 2D LVOT Diameter 2.1 cm LVOT Doppler LVOT Peak Velocity 139 cm/s LVOT Peak Gradient 7 mmHg LVOT Mean Gradient 3 mmHg LVOT VTI 24 cm LVOT VTI/AV VTI Ratio 1.0 LVOT Stroke Volume 83 ml LVOT CO 7.3 l/min LVOT CI 3.6 l/min/m2 Pulmonic Valve Name Value Normal PV Doppler PV Peak Velocity 139 cm/s PV Peak Gradient 8 mmHg PV Mean Gradient 4 mmHg Mitral Valve Name Value Normal MV Doppler MV Peak Gradient 8 mmHg MV Mean Gradient 3 mmHg MV Area (Cont Eq VTI) 2.7 cm2 MV Diastolic Function MV E Peak Velocity 149 cm/s MV Decel Time (PW) 179 ms MV Annular TDI MV E/e' (Septal) 16.2 MV E/e' (Lateral) 11.2 MV E/e' (Average) 13.7 Tricuspid Valve Name Value Normal TV Regurgitation Doppler TR Peak Velocity 272 cm/s TR Peak Gradient 30 mmHg Estimated PAP/RSVP RA Pressure 5 mmHg <=5 PA Systolic Pressure 35 mmHg <36 RV Systolic Pressure 35 mmHg <36 TV Annular TDI TV Lateral Kim s' Velocity 10.8 cm/s >=9.5 Aortic Valve Name Value Normal AV Doppler AV Peak Velocity 149 cm/s AV Peak Gradient 7 mmHg AV Mean Gradient 4 mmHg AV VTI 25 cm AV Area (Cont Eq VTI) 3.3 cm2 >=3.0 AV Area (Cont Eq Kj) 3.2 cm2 AV DI (Kj) 0.93 AV Regurgitation 2D LVOT Area 3.4 cm2 Ventricles Name Value Normal LV Dimensions 2D/MM IVS Diastolic Thickness (2D) 1.1 cm 0.6-1.0 LVID Diastole (2D) 3.8 cm 3.8-5.2 LVIW Diastolic Thickness (2D) 1.2 cm 0.6-0.9 LVID Systole (2D) 2.6 cm 2.2-3.5 LVOT Diameter 2.1 cm LV Mass (2D Cubed) 135.04 g 67.00-162.00 LV Mass Index (2D Cubed) 66 g/m2 43-95 Relative Wall Thickness (2D) 0.63 <=0.42 LV Fractional Shortening/Ejection Fraction 2D/MM LV Fractional Shortening (2D) 30 % 27-45 LV EF (2D Teichholz) 57 % LV Diastolic Volume (4C MOD) 58 ml LV EF (4C MOD) 79 % LV Diastolic Volume (2C MOD) 67 ml LV EF (2C MOD) 84 % LV Diastolic Volume (BP MOD) 63 ml 46-106 LV Diastolic Volume Index (BP MOD) 31 ml/m2 29-61 LV Systolic Volume (BP MOD) 12 ml 14-42 LV Systolic Volume Index (BP MOD) 6 ml/m2 8-24 LV EF (BP MOD) 82 % 54-74 LV Diastolic Length (4C) 6.6 cm LV Systolic Length (4C) 4.9 cm LV Stroke Volume (4C MOD) 46 ml Atria Name Value Normal LA Dimensions LA Volume (4C A-L) 66 ml RA Dimensions RA Systolic Major [place] Length (4C) 6.4 cm 2.2-2.8 RA Area (4C) 23.0 cm2 <=18.0 Report Signatures
--- NOTE | 2025-09-12 09:48 | P.CONCA_ITS ---
Assessment and Plan Assessment and plan (1) Left displaced femoral neck fracture: Code(s): S72.002A - Fracture of unspecified part of neck of left femur, initial encounter for closed fracture Status: Acute Assessment and Plan: * planned for left hip pinning today per ortho (2) Frequent falls: Code(s): R29.6 - Repeated falls Status: Acute Assessment and Plan: * patient reports multiple falls over the last year * this fall appears to be mechanical as she fell getting up out of chair * Denies any associated dizziness, chest pain or palpitations * Will place on tele to r/o arrhythmia * will check orthostatic VS when able (3) Chronic atrial fibrillation: Code(s): I48.20 - Chronic atrial fibrillation, unspecified Status: Acute Assessment and Plan: * rate controlled * she is on diltiazem 240 mg daily and denies any recent palpitations * was on warfarin in the past but this was stopped d/t recurrent falls * can discuss LAOO on OP basis * will place on tele pre and post-operatively (4) Hyperlipidemia: Qualifiers: Hyperlipidemia type: unspecified Qualified Code(s): E78.5 - Hyperlipidemia, unspecified Code(s): E78.5 - Hyperlipidemia, unspecified Status: Acute Assessment and Plan: * cotinue with atorvastatin 40 mg daily Plan * will do echo this am to look for LV dysfunction or WMA * this however does not need to delay her surgical procedure at this time as patient denies any anginal symptoms and no acute EKG findings noted * would recommend tele monitoring pre and post operatively * monitor her volume status closely History of Present Illness History of Present Illness Consult date/time: 09/12/25 09:48 Requesting physician: Brian Padgett MD Consult reason: atrial fibrillation Reason For Visit: hip fx Narrative: Simran Mercer is an 85 y.o. female with a PMH of atrial fibrillation, HLD, HTN, depression and recurrent falls who presented to the ER with c/o fall. According to the patient she was trying to get up out of her chair yesterday and fell. She denies any associated dizziness, light headedness, chest pain or pressure, SOB or palpitations. She denies any LOC with the fall. She reports a history of falls. She was found to have a left hip fracture in the ER and was admitted for orthopedic evaluation. Patient was noted to be in atrial fibrillation in the ER and we were consulted for pre-op evaluation. She reports this is chronic and had once been on warfarin for AC, but her PCP stopped it d/t her recurrent falls. She denies any other cardiac history and does not follow with area director of home health sales. Review of Systems 2 Review of Systems: All systems reviewed & are unremarkable except as noted in HPI and below PMFSH Past Medical History Medical History (Updated 09/11/25 @ 23:31 by Brian Padgett MD) Left displaced femoral neck fracture Family History Family History Father Hypertension Mother Hypertension Cancer Sibling Alcoholism Diabetes mellitus Hypertension Social History Social History Smoking status: Never smoker Alcohol intake: never Substance use: never Substance use type: does not use Lack of Transportation: No Lack of Food: Never True Current Housing: I Have Housing Concerned About Future Housing: No Difficulty Paying Gas/Electric Bills: No Difficulty Paying for Meds: No Currently Unemployed: No Education: Grade School Difficulty w/ Childcare or Family Care: No Spiritual care concerns: No Meds Home Medications and Allergies Home Medications ?Medication ?Instructions ?Recorded ?Confirmed ?Type ascorbic acid (vitamin C) 1,000 mg 1 g PO DAILY 09/11/25 History tablet (Vitamin C With Adelita Hips) aspirin 81 mg tablet,delayed 81 mg PO DAILY 01/03/24 1 11/12/24 History release acetaminophen 500 mg tablet 1,000 mg (2 x 500 mg) PO T ID PRN 10/30/24 09/11/25 Rx loreta 7 days #42 tabs citalopram 20 mg tablet 20 mg PO DAILY #90 tabs 01/2609/11/25 Rx atorvastatin 40 mg tablet See Rx Instructions .Route 0 07/03/25 09/11/25 Rx .COMPLEX #90 tabs diltiazem HCl 240 mg capsule,24 See Rx Instructions .R oute 07/03/25 09/11/25 Rx hr,extended release .COMPLEX #180 caps cetirizine 10 mg tablet (Zyrtec) 10 mg PO DAILY PRN al lergy symptoms 07/26/25 09/11/25 History Allergies Allergy/AdvReac Type Severity Reaction Status Date / Time No Known Allergies Allergy Unknown Verified 09/11/25 23:25 Vital Signs Vital Signs - 24 hr 09/11/25 17:39 09/11/25 17:45 09/11/25 17:47 Temperature 36.9 C Pulse Rate 64 Respiratory Rate 18 Blood Pressure 141/69 H 141/69 H Pulse Oximetry 96 99 99 Oxygen Delivery Room Air 09/11/25 18:11 09/11/25 18:15 09/11/25 18:27 Temperature Pulse Rate Respiratory Rate 20 Blood Pressure 149/58 H Pulse Oximetry 98 99 94 Oxygen Delivery 09/11/25 18:31 09/11/25 18:46 09/11/25 19:01 Temperature Pulse Rate Respiratory Rate 20 20 Blood Pressure 147/64 H 154/58 H 153/60 H Pulse Oximetry 95 95 93 Oxygen Delivery 09/11/25 21:01 09/11/25 21:46 09/11/25 23:32 Temperature 38.0 C H Pulse Rate 73 88 Respiratory Rate 20 18 Blood Pressure 156/62 H 164/56 H 149/60 H Pulse Oximetry 95 92 93 Oxygen Delivery 09/12/25 05:34 Temperature 36.9 C Pulse Rate 93 Respiratory Rate 18 Blood Pressure 145/61 H Pulse Oximetry 93 Oxygen Delivery Exam 2 Const: General: uncomfortable Eyes: Sclera: sclerae normal Neck: Neck: supple and No no JVD Carotids: no bruits Resp: Effort & Inspection: normal respiratory effort Auscultation: clear to auscultation bilaterally Cardio: Rate: regular rate Rhythm: abnormal rhythm irregularly irregular Heart sounds: no gallops, no murmurs and no rubs Skin: General skin exam: normal color Neuro: Speech: normal speech Extrem: General: no edema Psych: Mental Status: mental status grossly normal Results Labs and Meds 09/12/25 07:22 09/12/25 07:22 Lab results: Coagulation 09/11/25 Range/Units 18:27 PT 13.9 (11.1-14.7) Seconds APTT 23.1 (22.3-36.8) Seconds CBC 09/11/25 09/12/25 Range/Units 18:27 07:22 WBC 15.9 H 11.2 H (4.5-10.0) K/mm3 RBC 4.65 4.48 (4.2-5.4) M/mm3 Hgb 13.8 13.1 (12.0-15.0) g/dL Hct 41.4 40.0 (37.0-47.0) % Plt Count 198 176 (150-375) k/mm3 Lymph # (Auto) 1.23 1.37 (0.9-3.2) K/mm3 [place] # (Auto) 1.0 H 0.8 H (0.1-0.6) K/mm3 Eos # (Auto) 0.0 0.1 (0-0.3) K/mm3 Baso # (Auto) 0.0 0.0 (0.0-0.1) K/mm3 Comprehensive Metabolic Panel 09/11/25 09/12/25 Range/Units 18:27 07:22 Sodium 137 135 L (137-145) mmol/L Potassium 4.7 3.6 (3.4-5.0) mmol/L Chloride 104 104 (98-107) mmol/L Carbon Dioxide 23 26 (22-30) mmol/L BUN 15 13 (7-17) mg/dL Creatinine 0.91 0.83 (0.7-1.0) mg/dL Glucose 132 H 110 (65-110) mg/dL Calcium 9.3 8.5 (8.4-10.2) mg/dL Intake and Output 09/11/25 09/12/25 09/12/25 23:59 07:59 15:59 Output Total 350 Balance -350 Output: Catheter Urine 350 Urethral Catheter 350 Imaging and Cardiology EKG results: image reviewed EKG Interpretation EKG shows: atrial fibrillation (with left axis deviation. No acute ST/T wave changes. )
--- NOTE | 2025-09-12 11:16 | WPDHPUPDATE1 ---
History and Physical Update Update Date/Time: 09/12/25 11:16 History and Physical has been reviewed, including an updated exam of the patient. There are NO changes in the patient's condition. Risks, benefits, and alternatives have been discussed and questions answered. Patient agrees to proceed with procedure.
[2025-09-12] MEDS: PERFLUTREN LIPID MICROSPHERES 1.5 ML VIAL DILUTED TO 10 ML TOTAL VOLUME IV PUSH (12:54)
--- NOTE | 2025-09-12 12:54 | IVDEFINITY ---
Prior to administration of IV Definity the patient was educated on the risks and benefits of the imaging enhancing agent including potential adverse side effects. The patient verbalized understanding. Allergies were verified. No exclusion criteria were identified and at least one of the following inclusion criteria were met: 1) physician request, 2) patient technically difficult to image (per the [place] [employer]ocardi[employer] guidelines of two or more segments not discernable within the apical view), or 3) questionable left ventricular function. ?
[2025-09-12] MEDS: ACETAMINOPHEN 500 MG TABLET 1000 MG PO (14:15)
[2025-09-12] MEDS: KETOROLAC 15 MG/ML VIAL (*BKC) IV PUSH (14:15)
--- NOTE | 2025-09-12 14:42 | P.PNAN_ITS ---
Anes - Initial Pre Proc Eval Procedure: Operation Date: 09/12/25 15:00 Proposed Procedures p Left Hip Pinning Cannulated Screws - Brian Padgett MD Date/Time: 09/12/25 14:42 Surgeon: Emma Deng DO Pre Op Diagnosis: hip fx Patient Data Age: 85 Gender: F Height: 1.75 m Weight: 86.1 kg Last Vital Signs Temp 36.9 C 09/12/25 14:31 Pulse 85 09/12/25 14:31 Resp 16 09/12/25 14:31 BP 145/64 H 09/12/25 14:31 Pulse Ox 93 09/12/25 14:31 O2 Del Method Room Air 09/12/25 14:31 Allergies Allergy/AdvReac Type Severity Reaction Status Date / Time No Known Allergies Allergy Unknown Verified 09/11/25 23:25 Home Medications ?Medication ?Instructions ?Recorded ?Confirmed ?Type ascorbic acid (vitamin C) 1,000 mg 1 g PO DAILY 09/11/25 History tablet (Vitamin C With Adelita Hips) aspirin 81 mg tablet,delayed 81 mg PO DAILY 01/03/24 1 11/12/24 History release acetaminophen 500 mg tablet 1,000 mg (2 x 500 mg) PO T ID PRN 10/30/24 09/11/25 Rx loreta 7 days #42 tabs citalopram 20 mg tablet 20 mg PO DAILY #90 tabs 01/2609/11/25 Rx atorvastatin 40 mg tablet See Rx Instructions .Route 0 07/03/25 09/11/25 Rx .COMPLEX #90 tabs diltiazem HCl 240 mg capsule,24 See Rx Instructions .R oute 07/03/25 09/11/25 Rx hr,extended release .COMPLEX #180 caps cetirizine 10 mg tablet (Zyrtec) 10 mg PO DAILY PRN al lergy symptoms 07/26/25 09/11/25 History Laboratory Tests 09/11/25 09/12/25 18:27 07:22 WBC 15.9 H K/mm3 11.2 H K/mm3 (4.5-10.0) (4.5-10.0) RBC 4.65 M/mm3 4.48 M/mm3 (4.2-5.4) (4.2-5.4) Hgb 13.8 g/dL 13.1 g/dL (12.0-15.0) (12.0-15.0) Hct 41.4 % 40.0 % (37.0-47.0) (37.0-47.0) MCV 89.0 fl 89.3 fl (80-100) (80-100) MCH 29.7 pg 29.2 pg (26-34) (26-34) MCHC 33.3 g/dl 32.8 g/dl (32-36) (32-36) RDW 14.8 H % 14.9 H % (11.5-14.5) (11.5-14.5) Plt Count 198 k/mm3 176 k/mm3 (150-375) (150-375) MPV 10.5 H fl 10.9 H fl (7.4-10.4) (7.4-10.4) Immature Gran % (Auto) 0.6 H % 0.7 H % (0-0.5) (0-0.5) Neut % (Auto) 85.2 H % 78.8 H % (45.5-73.1) (45.5-73.1) Lymph % (Auto) 7.8 L % 12.3 L % (18.3-44.2) (18.3-44.2) [place] % (Auto) 6.1 % 7.1 % (2.6-8.5) (2.6-8.5) Eos % (Auto) 0.0 % 0.7 % (0-4.4) (0-4.4) Baso % (Auto) 0.3 % 0.4 % (0.2-1.2) (0.2-1.2) Lymph # (Auto) 1.23 K/mm3 1.37 K/mm3 (0.9-3.2) (0.9-3.2) [place] # (Auto) 1.0 H K/mm3 0.8 H K/mm3 (0.1-0.6) (0.1-0.6) Eos # (Auto) 0.0 K/mm3 0.1 K/mm3 (0-0.3) (0-0.3) Baso # (Auto) 0.0 K/mm3 0.0 K/mm3 (0.0-0.1) (0.0-0.1) Abs Immat Gran (auto) 0.09 H K/mm3 0.08 H K/mm3 (0.00-0.031) (0.00-0.031) Absolute Neuts (auto) 13.5 H K/mm3 8.8 H K/mm3 (1.3-6.7) (1.3-6.7) Absolute Nucleated RBC 0.000 K/mm3 0.000 K/mm3 (0.0-0.012) (0.0-0.012) Nucleated RBC % 0.0 % 0.0 % (0.0-0.2) (0.0-0.2) PT 13.9 Seconds (11.1-14.7) INR 1.1 APTT 23.1 Seconds (22.3-36.8) Sodium 137 mmol/L 135 L mmol/L (137-145) (137-145) Potassium 4.7 mmol/L 3.6 mmol/L (3.4-5.0) (3.4-5.0) Chloride 104 mmol/L 104 mmol/L (98-107) (98-107) Carbon Dioxide 23 mmol/L 26 mmol/L (22-30) (22-30) Anion Gap 10 mmol/L 5 mmol/L (4-12) (4-12) BUN 15 mg/dL 13 mg/dL (7-17) (7-17) Creatinine 0.91 mg/dL 0.83 mg/dL (0.7-1.0) (0.7-1.0) Estim Creat Clear Calc Not Reportable 49 ml/min Estimated GFR 58 L > 60 (59 - ) (59 - ) Glucose 132 H mg/dL 110 mg/dL (65-110) (65-110) Calcium 9.3 mg/dL 8.5 mg/dL (8.4-10.2) (8.4-10.2) Blood Type O Negative Antibody Screen Negative Patient hx anesthesia problems: none Family hx anesthesia problems: none Results Review: All pre-operative results and documents have been reviewed as part of the pre- operative evaluation. [facility] Past Medical History Medical History (Updated 09/12/25 @ 14:42 by Brandon Molina MD) Hyperlipidemia Chronic atrial fibrillation Overweight (BMI 25.0-29.9) Left displaced femoral neck fracture Family History Family History Father Hypertension Mother Hypertension Cancer Sibling Alcoholism Diabetes mellitus Hypertension Social History Social History Smoking status: Never smoker Alcohol intake: never Substance use: never Substance use type: does not use Lack of Transportation: No Lack of Food: Never True Current Housing: I Have Housing Concerned About Future Housing: No Difficulty Paying Gas/Electric Bills: No Difficulty Paying for Meds: No Currently Unemployed: No Education: Grade School Difficulty w/ Childcare or Family Care: No Spiritual care concerns: No Anes - Eval Final PreProcedure Day of Procedure 09/12/25 14:42 Patient weight: overweight Heart: irregular rhythm Lungs: clear to auscultation Airway: Mallampati scale class II Neurological: alert and oriented Last oral intake: >/= 8 hours ASA classification: III Emergent: no Anesthetic plan: proceed Anesthesia type and monitoring: general LMA and standard monitoring Results Review: All pre-operative results and documents have been reviewed as part of the pre- operative evaluation. Informed Consent: The patient's anesthetic plan and its attendant risks and benefits were discussed with the patient/family/POA. Questions were solicited and answers provided to the satisfaction of the patient/family/POA.
[2025-09-12] MEDS: TRANEXAMIC ACID 1,000MG/ISO100 1,000 MG/100 ML BAG 200 MG IVPB (15:27)
[2025-09-12] MEDS: LACTATED RINGERS 1,000 ML 30 ML IV CONT ×2 (15:48→16:50)
[2025-09-12] MEDS: ceFAZolin 2 GM in SODIUM CHLORIDE 0.9% IV 50 ML 100 ML IVPB ×2 (15:53→23:15)
[2025-09-12] MEDS: BUPIVACAINE/EPINEPHRINE 0.5% 50 ML VIAL 30 ML INFILTRATE (16:29)
--- NOTE | 2025-09-12 16:50 | W.PM.PROC2 ---
Procedure Note - Detailed Date of Procedure 09/12/25 Pre-op Diagnosis LT hip femoral neck fx Post-op Diagnosis Same Procedure Performed Left hip pinning of femoral neck fracture Surgeon Brian Padgett MD [employer] 1st social and human services assistant Anesthesia General Indications 85-year-old woman who fell and sustained a left hip femoral neck fracture. Fracture has valgus and impaction. Indicated for screw fixation. Patient desires a left hip pinning. Description of Procedure Informed consent signed. Extremity marked in preoperative holding area. Patient received intravenous antibiotics. Brought to operating room and underwent general anesthetic by the Anesthesia Team. Positioned supine on the fracture table. Left leg placed into longitudinal traction. Right leg extended out of field. Image intensification brought in and confirmed reduction of fracture. Left hip prepped and draped in usual sterile surgical fashion using ChloraPrep skin solution. Image intensification used to guide the starting position and a longitudinal incision made with 10 blade knife over the lateral proximal femur. Blunt dissection carried down to the lateral femur. Bleeding controlled with electrocautery. First guide pin placed in the inferior center position of the femoral neck and head. Confirmed with image intensification. Two subsequent pins placed superior and anterior and superior and posterior to the 1st pin to create an inverted triangle type pattern. Pins confirmed with image intensification. Length of screw measured, reaming performed. Appropriate size screw placed with good compression and fixation noted for all 3 pins. Guide pins removed. Final image intensification confirmed reduction of fracture and placement of hardware with threads past the fracture line and no protrusion of the hip joint. Wound thoroughly irrigated with antibiotic solution. Fascia repaired with 2 0 Vicryl interrupted sutures. Subcutaneous tissue repaired with 3 0 Monocryl interrupted suture. Skin approximated with 3 0 Monocryl running suture. Sterile dressing applied. Patient awoken from anesthesia, extubated and returned to recovery room in stable condition. All sponge needle and instrument counts correct at the end of the case. Implants Arthrex 7.0 mm cannulated screws x3 Estimated Blood Loss 20 Drains No Packing No Pathology None sent Complications None Condition Stable Disposition PACU [facility] Billing Surgery - Charge Forward: Surgery Billing ([id number])
[2025-09-12] MEDS: SENNA/DOCUSATE SODIUM TABLET 2 TAB PO (18:42)
[2025-09-12] MEDS: SODIUM CHLORIDE 0.9% IV 1,000 ML 125 ML IV CONT (18:42)
[2025-09-13] VITALS (10 sets, daily range): BP systolic 137–165; BP diastolic 64–82; PULSE 75–109; RESP 16–18; TEMP 36.3–36.8; O2SAT 94–97
[2025-09-13] MEDS: SODIUM CHLORIDE 0.9% IV 1,000 ML 125 ML IV CONT (03:24)
[2025-09-13 06:37] LABS: Hematocrit 38.3 % (37.0-47.0); Hemoglobin 12.5 g/dL (12.0-15.0); Immature Granulocyte Percent A 0.5 % (0-0.5); Lymphocytes Absolute Auto 0.59 K/mm3 (0.9-3.2); Mean Corpuscular HGB Conc 32.6 g/dl (32-36); Mean Corpuscular Hemoglobin 29.4 pg (26-34); Mean Corpuscular Volume 90.1 fl (80-100); Nucleated Red Blood Cells Absolute Auto 0.000 K/mm3 (0.0-0.012); Nucleated Red Blood Cells Perc 0.0 % (0.0-0.2); Platelet Count Result 147 k/mm3 (150-375); Red Blood Count 4.25 M/mm3 (4.2-5.4); White Blood Count 11.1 K/mm3 (4.5-10.0)
[2025-09-13 07:02] LABS: Anion Gap 4 mmol/L (4-12); Blood Urea Nitrogen 12 mg/dL (7-17); Calcium 8.1 mg/dL (8.4-10.2); Carbon Dioxide 23 mmol/L (22-30); Chloride 108 mmol/L (98-107); Estimated CRCL calculation 67 ml/min; Estimated Glomerular Filt Rate > 60; Glucose 130 mg/dL (65-110); Potassium 4.0 mmol/L (3.4-5.0); Sodium 135 mmol/L (137-145)
--- NOTE | 2025-09-13 07:44 | P.PNIM_ITS ---
Assessment and Plan Assessment and Plan (1) Left displaced femoral neck fracture: Code(s): S72.002A - Fracture of unspecified part of neck of left femur, initial encounter for closed fracture Status: Acute Assessment and Plan: - fell standing from chair, mechanical in nature. - X-ray pelvis showed acute impacted fracture of the femoral neck at the left hip. - s/p left hip pinning of femoral neck fracture -orthopedic surgery following -continue pain control, DVT prophylaxis with ASA 325 mg BID per ortho, bowel regimen -PT/OT - planning for JOSE D on discharge (2) Chronic atrial fibrillation: Code(s): I48.20 - Chronic atrial fibrillation, unspecified Status: Inactive Assessment and Plan: -continue home diltiazem, aspirin - not on anticoagulation due to history of frequent falls and advanced age (3) Hyperlipidemia: Qualifiers: Hyperlipidemia type: unspecified Qualified Code(s): E78.5 - Hyperlipidemia, unspecified Code(s): E78.5 - Hyperlipidemia, unspecified Status: Inactive Assessment and Plan: -continue statin Plan Code status: no CPR or intubation, meds OK DVT prophylaxis: ASA per ortho Dispo: TBD pending hospital course Medical Record Review I have reviewed the following patient records and this information was taken into consideration when formulating the assessment and plan.: previous labs Subjective Date/time seen: 09/13/25 07:44 Interval history: Patient seen and examined at bedside. Review of Systems Review of Systems: All systems reviewed & are unremarkable except as noted in HPI and below Exam Narrative: General: NAD Eyes: EOMI ENT: neck supple Cardiovascular: Regular rate and rhythm Respiratory: Clear to auscultation, respirations even and unlabored on RA Gastrointestinal: Soft, non tender Genitourinary: no suprapubic tenderness Musculoskeletal: No edema Skin: warm, dry. Surgical dressing CDI. Neuro: Alert. Psych: Mood appropriate Objective Data Vital Signs Vital Signs: Vital Signs - 24 hr 09/12/25 08:00 09/12/25 14:31 09/12/25 16:50 Temperature 98.4 F 97.7 F Pulse Rate 85 89 Respiratory Rate 16 16 Blood Pressure 145/64 H 114/53 L Pulse Oximetry 93 94 Oxygen Delivery Room Air Room Air Simple Face Mask Oxygen Flow Rate 8 09/12/25 17:00 09/12/25 17:15 09/12/25 17:19 Temperature Pulse Rate 79 94 Respiratory Rate 16 22 H Blood Pressure 131/55 L 132/58 L Pulse Oximetry 100 99 98 Oxygen Delivery Simple Face Mask Simple Face Mask Room Air Oxygen Flow Rate 8 8 09/12/25 17:30 09/12/25 17:45 09/12/25 17:55 Temperature 97.1 F L Pulse Rate 83 90 88 Respiratory Rate 22 H 20 18 Blood Pressure 121/57 L 135/54 L 132/56 L Pulse Oximetry 98 95 95 Oxygen Delivery Nasal Cannula Nasal Cannula Nasal Cannula Oxygen Flow Rate 2 2 2 09/12/25 17:58 09/12/25 18:13 09/12/25 20:00 Temperature 97.3 F L 98.5 F Pulse Rate 86 86 107 H Respiratory Rate 16 18 18 Blood Pressure 126/49 L 127/63 Pulse Oximetry 91 94 94 Oxygen Delivery Nasal Cannula Oxygen Flow Rate 2 09/12/25 21:47 09/12/25 21:52 09/12/25 23:43 Temperature 97.2 F L 97.2 F L 97.4 F L Pulse Rate 107 H 107 H 96 Respiratory Rate 18 18 16 Blood Pressure 137/61 137/61 146/69 H Pulse Oximetry 94 94 95 Oxygen Delivery Oxygen Flow Rate 09/13/25 00:00 09/13/25 03:43 09/13/25 04:00 Temperature 98.2 F Pulse Rate 96 92 99 Respiratory Rate 16 Blood Pressure 145/78 H Pulse Oximetry 97 Oxygen Delivery Oxygen Flow Rate Intake/Output Intake/Output: Intake & Output 09/10/25 09/11/25 09/12/25 09/13/25 23:59 23:59 23:59 23:59 Intake Total 700 1100 Output Total 725 900 Balance -25 200 Meds/Results Medications: Active Medications Generic Name Dose Route Start Last Admin Trade Name Freq PRN Reason Stop Dose Admin Hydrocodone Bitart/Acetaminophen 1 tab 09/12/25 17:58 Hydrocodone/Acetaminophen (*Crx) 5-325 Mg Tablet PO Q4H PRN Pain Rated 4-6 Al Hydrox/Mg Hydrox/Simethicone 30 ml 09/12/25 17:58 Mag Hydrox/Al Hydrox/Simeth 30 Ml Udc PO Q6H PRN Indigestion Aspirin 325 mg 09/13/25 09:00 Aspirin 325 Mg Enteric Tablet PO Q12HR MARIA TERESA Atorvastatin Calcium 40 mg 09/12/25 13:55 09/12/25 18:38 Atorvastatin 40 Mg Tablet PO Not Given DAILY MARIA TERESA Citalopram Hydrobromide 20 mg 09/12/25 13:55 09/12/25 18:38 Citalopram Hydrobromide 20 Mg Tablet PO Not Given DAILY MARIA TERESA Diltiazem HCl 240 mg 09/12/25 13:55 09/12/25 18:39 Diltiazem Hcl Cd 240 Mg Cap.24hr PO Not Given QAM [facility] Hydromorphone HCl 0.5 mg 09/12/25 17:58 Hydromorphone Hcl Inj (*Crx) 1 Mg/Ml Syr IV PUSH Q2H PRN Breakthrough Pain Rated 4-6 or NPO Cefazolin Sodium 2 gm/ Sodium 50 mls @ 100 mls/hr 09/13/25 00:00 09/12/25 23:45 Chloride IVPB 09/13/25 16:29 Infused Q8H MARIA TERESA Infusion Ibuprofen 800 mg in 200 mls @ 400 mls/hr 09/12/25 17:58 Caldolor 800 Mg/200 Ml IVPB Q6H PRN Breakthrough Pain Rated 1-3 or NPO Sodium Chloride 1,000 mls @ 125 mls/hr 09/12/25 17:58 09/13/25 03:24 Normal Saline Iv IV CONT 125 mls/hr .Q8H MARIA TERESA Administration Naloxone HCl 0.1 mg 09/12/25 17:58 Naloxone Hcl 0.4 Mg/Ml Vial IV PUSH Q2M PRN Opiate Reversal Ondansetron HCl 4 mg 09/12/25 17:58 Ondansetron Inj 4 Mg/2 Ml Vial IV PUSH Q4H PRN Nausea And Vomiting Polyethylene Glycol 17 gm 09/13/25 09:00 Polyethylene Glycol 3350 17 Gm Powd.Pack PO QAM MARIA TERESA Senna/Docusate Sodium 2 tab 09/12/25 17:58 09/12/25 18:42 Senna/Docusate Sodium Tablet PO 2 tab BID MARIA TERESA Administration Radiology Results: ITS Impressions Hip/Pelvis X-Ray 09/11/25 18:12 IMPRESSION: 1. Acute impacted fracture of the femoral neck at the left hip. Osteopenic bones. Please correlate with DEXA densitometry. Chest X-Ray 09/11/25 18:15 IMPRESSION: 1. No acute pulmonary findings. Intraoperative X-Ray 09/12/25 16:45 IMPRESSION: Fluoroscopic images per orthopedic service. No radiologist present. See also operative/surgical notes for complete details. Labs Labs: Laboratory Results - last 24 hr 09/12/25 09/13/25 07:22 05:55 WBC 11.2 H 11.1 H RBC 4.48 4.25 Hgb 13.1 12.5 Hct 40.0 38.3 MCV 89.3 90.1 MCH 29.2 29.4 MCHC 32.8 32.6 RDW 14.9 H 14.6 H Plt Count 176 147 L MPV 10.9 H 11.1 H Immature Gran % (Auto) 0.7 H 0.5 Neut % (Auto) 78.8 H 90.6 H Lymph % (Auto) 12.3 L 5.3 L [place] % (Auto) 7.1 3.3 Eos % (Auto) 0.7 0.1 Baso % (Auto) 0.4 0.2 Lymph # (Auto) 1.37 0.59 L [place] # (Auto) 0.8 H 0.4 Eos # (Auto) 0.1 0.0 Baso # (Auto) 0.0 0.0 Abs Immat Gran (auto) 0.08 H 0.06 H Absolute Neuts (auto) 8.8 H 10.1 H Absolute Nucleated RBC 0.000 0.000 Nucleated RBC % 0.0 0.0 Sodium 135 L 135 L Potassium 3.6 4.0 Chloride 104 108 H Carbon Dioxide 26 23 Anion Gap 5 4 BUN 13 12 Creatinine 0.83 0.59 L Estim Creat Clear Calc 49 67 Estimated GFR > 60 > 60 Glucose 110 130 H Calcium 8.5 8.1 L Hospitalist MIPS Advance Care Plan I have confirmed that the patient's Advanced Care Plan is present, code status is documented, or surrogate decision maker is listed in patient medical record.: Yes Medication Reconciliation I have utilized all available resources to obtain, update and review the patients current medications (includes all prescriptions, OTC, herbals, cannabis, and nutritional supplements).: Yes
[2025-09-13] MEDS: SENNA/DOCUSATE SODIUM TABLET 2 TAB PO ×2 (08:56→16:19)
[2025-09-13] MEDS: dilTIAZem HCL CD 240 MG CAP.24HR PO (08:56)
[2025-09-13] MEDS: CITALOPRAM HYDROBROMIDE 20 MG TABLET PO (08:56)
[2025-09-13] MEDS: ATORVASTATIN 40 MG TABLET PO (08:56)
[2025-09-13] MEDS: ASPIRIN 325 MG ENTERIC TABLET PO ×2 (08:56→21:30)
[2025-09-13] MEDS: ceFAZolin 2 GM in SODIUM CHLORIDE 0.9% IV 50 ML 100 ML IVPB ×2 (09:00→16:19)
--- NOTE | 2025-09-13 11:36 | PM.CNOR ---
History of Present Illness HPI Consult date: 09/13/25 Chief complaint: hip fx PMFSH Past Medical History Medical History (Updated 09/12/25 @ 14:42 by Brandon Molina MD) Hyperlipidemia Chronic atrial fibrillation Overweight (BMI 25.0-29.9) Left displaced femoral neck fracture Family History Family History Father Hypertension Mother Hypertension Cancer Sibling Alcoholism Diabetes mellitus Hypertension Social History Social History Smoking status: Never smoker Alcohol intake: never Substance use: never Substance use type: does not use Lack of Transportation: No Lack of Food: Never True Current Housing: I Have Housing Concerned About Future Housing: No Difficulty Paying Gas/Electric Bills: No Difficulty Paying for Meds: No Currently Unemployed: No Education: Grade School Difficulty w/ Childcare or Family Care: No Spiritual care concerns: No Meds Home Medications and Allergies Home Medications ?Medication ?Instructions ?Recorded ?Confirmed ?Type ascorbic acid (vitamin C) 1,000 mg 1 g PO DAILY 01/03/24 09/11/25 History tablet (Vitamin C With Adelita Hips) aspirin 81 mg tablet,delayed 81 mg PO DAILY 01/03/24 09/11/25 History release acetaminophen 500 mg tablet 1,000 mg (2 x 500 mg) PO TID PRN 10/30/24 09/11/25 Rx loreta 7 days #42 tabs citalopram 20 mg tablet 20 mg PO DAILY #90 tabs 06/07/25 09/11/25 Rx atorvastatin 40 mg tablet See Rx Instructions .Route 07/03/25 09/11/25 Rx .COMPLEX #90 tabs diltiazem HCl 240 mg capsule,24 See Rx Instructions .Route 07/03/25 09/11/25 Rx hr,extended release .COMPLEX #180 caps cetirizine 10 mg tablet (Zyrtec) 10 mg PO DAILY PRN allergy symptoms 07/26/25 09/11/25 History Allergies Allergy/AdvReac Type Severity Reaction Status Date / Time No Known Allergies Allergy Unknown Verified 09/11/25 23:25 Vital Signs Vital Signs - 24 hr 09/12/25 14:31 09/12/25 16:50 09/12/25 17:00 Temperature 36.9 C 36.5 C Pulse Rate 85 89 79 Respiratory Rate 16 16 16 Blood Pressure 145/64 H 114/53 L 131/55 L Pulse Oximetry 93 94 100 Oxygen Delivery Room Air Simple Face Mask Simple Face Mask Oxygen Flow Rate 8 8 09/12/25 17:15 09/12/25 17:19 09/12/25 17:30 Temperature Pulse Rate 94 83 Respiratory Rate 22 H 22 H Blood Pressure 132/58 L 121/57 L Pulse Oximetry 99 98 98 Oxygen Delivery Simple Face Mask Room Air Nasal Cannula Oxygen Flow Rate 8 2 09/12/25 17:45 09/12/25 17:55 09/12/25 17:58 Temperature 36.2 C L 36.3 C L Pulse Rate 90 88 86 Respiratory Rate 20 18 16 Blood Pressure 135/54 L 132/56 L 126/49 L Pulse Oximetry 95 95 91 Oxygen Delivery Nasal Cannula Nasal Cannula Oxygen Flow Rate 2 2 09/12/25 18:13 09/12/25 20:00 09/12/25 21:47 Temperature 36.9 C 36.2 C L Pulse Rate 86 107 H 107 H Respiratory Rate 18 18 18 Blood Pressure 127/63 137/61 Pulse Oximetry 94 94 94 Oxygen Delivery Nasal Cannula Oxygen Flow Rate 2 09/12/25 21:52 09/12/25 23:43 09/13/25 00:00 Temperature 36.2 C L 36.3 C L Pulse Rate 107 H 96 96 Respiratory Rate 18 16 Blood Pressure 137/61 146/69 H Pulse Oximetry 94 95 Oxygen Delivery Oxygen Flow Rate 09/13/25 03:43 09/13/25 04:00 09/13/25 07:43 Temperature 36.8 C 36.8 C Pulse Rate 92 99 107 H Respiratory Rate 16 16 Blood Pressure 145/78 H 155/70 H Pulse Oximetry 97 95 Oxygen Delivery Oxygen Flow Rate 09/13/25 08:02 09/13/25 10:38 Temperature Pulse Rate Respiratory Rate Blood Pressure Pulse Oximetry Oxygen Delivery Room Air Room Air Oxygen Flow Rate Results Labs 09/13/25 05:55 09/13/25 05:55 Labs: Abnormal lab results 09/13/25 Range/Units 05:55 WBC 11.1 H (4.5-10.0) K/mm3 RDW 14.6 H (11.5-14.5) % Plt Count 147 L (150-375) k/mm3 MPV 11.1 H (7.4-10.4) fl Neut % (Auto) 90.6 H (45.5-73.1) % Lymph % (Auto) 5.3 L (18.3-44.2) % Lymph # (Auto) 0.59 L (0.9-3.2) K/mm3 Abs Immat Gran (auto) 0.06 H (0.00-0.031) K/mm3 Absolute Neuts (auto) 10.1 H (1.3-6.7) K/mm3 Sodium 135 L (137-145) mmol/L Chloride 108 H (98-107) mmol/L Creatinine 0.59 L (0.7-1.0) mg/dL Glucose 130 H (65-110) mg/dL Calcium 8.1 L (8.4-10.2) mg/dL H & H 09/11/25 09/12/25 09/13/25 Range/Units 18:27 07:22 05:55 Hgb 13.8 13.1 12.5 (12.0-15.0) g/dL Hct 41.4 40.0 38.3 (37.0-47.0) % Coagulation 09/11/25 Range/Units 18:27 INR 1.1 All other labs normal.
--- NOTE | 2025-09-13 11:38 | P.PNOP_ITS ---
Progress Note: A&P Assessment and Plan (1) Left displaced femoral neck fracture: Code(s): S72.002A - Fracture of unspecified part of neck of left femur, initial encounter for closed fracture Status: Acute Assessment and Plan: POD #1 : Left hip pinning of femoral neck fracture Continue PT/OT. WBAT. Walker. HIGH FALL RISK. Continue pain control. Ice Hip. Protect skin. DVT prophylaxis with Aspirin. SCDs. Incentive Spirometry Use reviewed. Monitor Dressing. Change prior to discharge. Bowel Regimen. Dispo: JOSE D pending progress with PT/OT Time Spent With Patient Time: Reviewed history, exam, radiographs and current labs with attending MD and covering surgeon, Dr. Padgett, who agrees with current plan as indicated above. No further recommendations from Dr. Padgett at this time. Subjective Subjective Date/Time Seen: 09/13/25 11:38 Post Op day: 1 Interval history: POD #1: Left hip pinning of femoral neck fracture Patient doing well. Pain well controlled. No new concerns. Review of Systems Constitutional: Constitutional: Denies chills, Denies fatigue, Denies fever(s), Denies night sweats and Denies weakness Cardiovascular: Cardiovascular: Denies chest pain, Denies lightheadedness, De nies palpitations and Denies dyspnea Respiratory: Respiratory: Denies cough, Denies dyspnea and Denies wheezing Gastrointestinal: Gastrointestinal: Denies abdominal pain, Denies diarrhea, Denies nausea and Denies vomiting Musculoskeletal: Musculoskeletal: Reports arthralgias (left hip ), Reports joint swelling (left hip ) and Denies numbness Neurologic: Denies numbness and Denies weakness Endocrine: Endocrine: Denies fatigue and Denies palpitations Allergic/Immunologic: Allergic/Immunologic: Denies wheezing Exam Const: General: comfortable and no acute distress Orientation/consciousn ess: patient oriented x3 Limitations: no limitations Resp: Effort & Inspection: normal respiratory effort Cardio: Rate: regular rate Rhythm: regular rhythm GI: Inspection: non-distended Skin: General skin exam: normal color and wounds noted (incision left hip C/D/I ) Wounds: wounds noted (incision left hip C/D/I ) Neuro: General: patient oriented x3 Extrem: Left lower extremity: hip/thigh Details: tenderness Location: of the hip Location: laterally and anteriorly, swelling (thigh soft ) Location: of the hip (lateral. ), abnormal ROM (limitations with internal/external rotation and flexion/extension due to recent surgical intervention ) and other (incision lateral hip c/d/i. ), knee Details: normal to inspection and normal ROM; no tenderness and no swelling, lower leg (Negative [place]'s Sign ) Details: no edema, ankle (+ankle dorsiflexion/plantarflexion ) Details: normal to inspection, no edema and normal ROM; no tenderness, no swelling and no warmth and foot Details: normal capillary refill, toes with normal ROM, vascular exam Details: dorsalis pedis pulse present and motor-sensory exam light-touch normal in all toes; no tenderness, no ecchymosis and no crepitus Psych: Mental Status: mental status grossly normal Affect: normal affect Objective Data Vital Signs Vital Signs: Vital Signs - 24 hr 09/12/25 14:31 09/12/25 16:50 09/12/25 17:00 Temperature 36.9 C 36.5 C Pulse Rate 85 89 79 Respiratory Rate 16 16 16 Blood Pressure 145/64 H 114/53 L 131/55 L Pulse Oximetry 93 94 100 Oxygen Delivery Room Air Simple Face Mask Simple Face Mask Oxygen Flow Rate 8 8 09/12/25 17:15 09/12/25 17:19 09/12/25 17:30 Temperature Pulse Rate 94 83 Respiratory Rate 22 H 22 H Blood Pressure 132/58 L 121/57 L Pulse Oximetry 99 98 98 Oxygen Delivery Simple Face Mask Room Air Nasal Cannula Oxygen Flow Rate 8 2 09/12/25 17:45 09/12/25 17:55 09/12/25 17:58 Temperature 36.2 C L 36.3 C L Pulse Rate 90 88 86 Respiratory Rate 20 18 16 Blood Pressure 135/54 L 132/56 L 126/49 L Pulse Oximetry 95 95 91 Oxygen Delivery Nasal Cannula Nasal Cannula Oxygen Flow Rate 2 2 09/12/25 18:13 09/12/25 20:00 09/12/25 21:47 Temperature 36.9 C 36.2 C L Pulse Rate 86 107 H 107 H Respiratory Rate 18 18 18 Blood Pressure 127/63 137/61 Pulse Oximetry 94 94 94 Oxygen Delivery Nasal Cannula Oxygen Flow Rate 2 09/12/25 21:52 09/12/25 23:43 09/13/25 00:00 Temperature 36.2 C L 36.3 C L Pulse Rate 107 H 96 96 Respiratory Rate 18 16 Blood Pressure 137/61 146/69 H Pulse Oximetry 94 95 Oxygen Delivery Oxygen Flow Rate 09/13/25 03:43 09/13/25 04:00 09/13/25 07:43 Temperature 36.8 C 36.8 C Pulse Rate 92 99 107 H Respiratory Rate 16 16 Blood Pressure 145/78 H 155/70 H Pulse Oximetry 97 95 Oxygen Delivery Oxygen Flow Rate 09/13/25 08:02 09/13/25 10:38 Temperature Pulse Rate Respiratory Rate Blood Pressure Pulse Oximetry Oxygen Delivery Room Air Room Air Oxygen Flow Rate Intake/Output Intake/Output: Intake & Output 09/10/25 09/11/25 09/12/25 09/13/25 23:59 23:59 23:59 23:59 Intake Total 700 1698 Output Total 725 900 Balance -25 798 Meds/Results Medications: Active Medications Generic Name Dose Route Start Last Admin Trade Name Freq PRN Reason Stop Dose Admin Hydrocodone Bitart/Acetaminophen 1 tab 09/12/25 17:58 Hydrocodone/Acetaminophen (*Crx) 5-325 Mg Tablet PO Q4H PRN Pain Rated 4-6 Al Hydrox/Mg Hydrox/Simethicone 30 ml 09/12/25 17:58 Mag Hydrox/Al Hydrox/Simeth 30 Ml Udc PO Q6H PRN Indigestion Aspirin 325 mg 09/13/25 09:00 09/13/25 08:56 Aspirin 325 Mg Enteric Tablet PO 325 mg Q12HR MARIA TERESA Administration Atorvastatin Calcium 40 mg 09/12/25 13:55 09/13/25 08:56 Atorvastatin 40 Mg Tablet PO 40 mg DAILY MARIA TERESA Administration Citalopram Hydrobromide 20 mg 09/12/25 13:55 09/13/25 08:56 Citalopram Hydrobromide 20 Mg Tablet PO 20 mg DAILY MARIA TERESA Administration Diltiazem HCl 240 mg 09/12/25 13:55 09/13/25 08:56 Diltiazem Hcl Cd 240 Mg Cap.24hr PO 240 mg QAM MARIA TERESA Administration Hydromorphone HCl 0.5 mg 09/12/25 17:58 Hydromorphone Hcl Inj (*Crx) 1 Mg/Ml Syr IV PUSH Q2H PRN Breakthrough Pain Rated 4-6 or NPO Cefazolin Sodium 2 gm/ Sodium 50 mls @ 100 mls/hr 09/13/25 00:00 09/13/25 09:00 Chloride IVPB 09/13/25 16:29 100 mls/hr Q8H MARIA TERESA Administration Ibuprofen 800 mg in 200 mls @ 400 mls/hr 09/12/25 17:58 Caldolor 800 Mg/200 Ml IVPB Q6H PRN Breakthrough Pain Rated 1-3 or NPO Naloxone HCl 0.1 mg 09/12/25 17:58 Naloxone Hcl 0.4 Mg/Ml Vial IV PUSH Q2M PRN Opiate Reversal Ondansetron HCl 4 mg 09/12/25 17:58 Ondansetron Inj 4 Mg/2 Ml Vial IV PUSH Q4H PRN Nausea And Vomiting Polyethylene Glycol 17 gm 09/13/25 09:00 09/13/25 08:57 Polyethylene Glycol 3350 17 Gm Powd.Pack PO 17 gm QAM MARIA TERESA Administration Senna/Docusate Sodium 2 tab 09/12/25 17:58 09/13/25 08:56 Senna/Docusate Sodium Tablet PO 2 tab BID MARIA TERESA Administration Radiology Results: ITS Impressions Hip/Pelvis X-Ray 09/11/25 18:12 IMPRESSION: 1. Acute impacted fracture of the femoral neck at the left hip. Osteopenic bones. Please correlate with DEXA densitometry. Chest X-Ray 09/11/25 18:15 IMPRESSION: 1. No acute pulmonary findings. Intraoperative X-Ray 09/12/25 16:45 IMPRESSION: Fluoroscopic images per orthopedic service. No radiologist present. See also operative/surgical notes for complete details. Labs Labs: Laboratory Results - last 24 hr 09/13/25 05:55 WBC 11.1 H RBC 4.25 Hgb 12.5 Hct 38.3 MCV 90.1 MCH 29.4 MCHC 32.6 RDW 14.6 H Plt Count 147 L MPV 11.1 H Immature Gran % (Auto) 0.5 Neut % (Auto) 90.6 H Lymph % (Auto) 5.3 L [place] % (Auto) 3.3 Eos % (Auto) 0.1 Baso % (Auto) 0.2 Lymph # (Auto) 0.59 L [place] # (Auto) 0.4 Eos # (Auto) 0.0 Baso # (Auto) 0.0 Abs Immat Gran (auto) 0.06 H Absolute Neuts (auto) 10.1 H Absolute Nucleated RBC 0.000 Nucleated RBC % 0.0 Sodium 135 L Potassium 4.0 Chloride 108 H Carbon Dioxide 23 Anion Gap 4 BUN 12 Creatinine 0.59 L Estim Creat Clear Calc 67 Estimated GFR > 60 Glucose 130 H Calcium 8.1 L
[2025-09-14] VITALS: PULSE 82
[2025-09-14 04:00] VITALS: PULSE 89
[2025-09-14 06:00] VITALS: BP 162/82; PULSE 99; RESP 18; TEMP 36.4; O2SAT 95
[2025-09-14 06:12] LABS: Hematocrit 37.2 % (37.0-47.0); Hemoglobin 12.2 g/dL (12.0-15.0); Immature Granulocyte Percent A 0.4 % (0-0.5); Lymphocytes Absolute Auto 1.09 K/mm3 (0.9-3.2); Mean Corpuscular HGB Conc 32.8 g/dl (32-36); Mean Corpuscular Hemoglobin 29.2 pg (26-34); Mean Corpuscular Volume 89.0 fl (80-100); Nucleated Red Blood Cells Absolute Auto 0.000 K/mm3 (0.0-0.012); Nucleated Red Blood Cells Perc 0.0 % (0.0-0.2); Platelet Count Result 149 k/mm3 (150-375); Red Blood Count 4.18 M/mm3 (4.2-5.4); White Blood Count 10.1 K/mm3 (4.5-10.0)
[2025-09-14 06:32] LABS: Anion Gap 4 mmol/L (4-12); Blood Urea Nitrogen 16 mg/dL (7-17); Calcium 8.3 mg/dL (8.4-10.2); Carbon Dioxide 26 mmol/L (22-30); Chloride 106 mmol/L (98-107); Estimated CRCL calculation 59 ml/min; Estimated Glomerular Filt Rate > 60; Glucose 118 mg/dL (65-110); Potassium 3.6 mmol/L (3.4-5.0); Sodium 136 mmol/L (137-145)
[2025-09-14] MEDS: SENNA/DOCUSATE SODIUM TABLET 2 TAB PO (08:55)
[2025-09-14 08:56] VITALS: PULSE 78
[2025-09-14] MEDS: CITALOPRAM HYDROBROMIDE 20 MG TABLET PO (08:56)
[2025-09-14] MEDS: ASPIRIN 325 MG ENTERIC TABLET PO (08:56)
[2025-09-14] MEDS: ATORVASTATIN 40 MG TABLET PO (08:56)
[2025-09-14] MEDS: dilTIAZem HCL CD 240 MG CAP.24HR PO (08:56)
[2025-09-14] MEDS: IBUPROFEN IV 800 MG/200 ML 800 MG/200 ML BAG 400 MG IVPB (09:08)
--- NOTE | 2025-09-14 09:20 | P.PNOP_ITS ---
Progress Note: A&P Assessment and Plan (1) Left displaced femoral neck fracture: Code(s): S72.002A - Fracture of unspecified part of neck of left femur, initial encounter for closed fracture Status: Acute Assessment and Plan: POD #2 : Left hip pinning of femoral neck fracture Continue PT/OT. WBAT. Walker. HIGH FALL RISK. Continue pain control. Ice Hip. Protect skin. DVT prophylaxis with Aspirin. SCDs. Incentive Spirometry Use reviewed. Monitor Dressing. Change prior to discharge. Bowel Regimen. Dispo: JOSE D pending progress with PT/OT Time Spent With Patient Time: Subjective Subjective Date/Time Seen: 09/14/25 09:20 Post Op day: 2 Principal diagnosis: left femoral neck fracture Interval history: sitting up in bed eating breakfast. Complains of some pain left hip and left leg. Better today. Exam Const: General: comfortable and no acute distress Orientation/consciousness: patient oriented x3 Limitations: no limitations Resp: Effort & Inspection: normal respiratory effort Skin: General skin exam: normal color and wounds noted (incision left hip C /D/I ) Wounds: wounds noted (incision left hip C/D/I ) Neuro: General: patient oriented x3 Extrem: Left lower extremity: hip/thigh Details: tenderness Location: of the hip Location: laterally and anteriorly, swelling (thigh soft ) Location: of the hip (lateral. ), abnormal ROM (limitations with internal/external rotation and flexion/extension due to recent surgical intervention ) and other (incision lateral hip c/d/i. ), knee Details: normal to inspection and normal ROM; no tenderness and no swelling, lower leg (Negative [place]'s Sign ) Details: no edema, ankle (+ankle dorsiflexion/plantarflexion ) Details: normal to inspection, no edema and normal ROM; no tenderness, no swelling and no warmth and foot Details: normal capillary refill, toes with normal ROM, vascular exam Details: dorsalis pedis pulse present and motor-sensory exam light-touch normal in all toes; no tenderness, no ecchymosis and no crepitus Psych: Mental Status: mental status grossly normal Affect: normal affect Objective Data Vital Signs Vital Signs: Vital Signs - 24 hr 09/13/25 10:38 09/13/25 11:43 09/13/25 15:43 Temperature 97.4 F L 97.8 F Pulse Rate 75 80 Respiratory Rate 18 18 Blood Pressure 165/82 H 142/64 H Pulse Oximetry 94 94 Oxygen Delivery Room Air 09/13/25 16:00 09/13/25 20:00 09/13/25 20:00 Temperature Pulse Rate 91 87 109 H Respiratory Rate 18 Blood Pressure Pulse Oximetry 95 Oxygen Delivery Room Air 09/13/25 20:29 09/14/25 00:00 09/14/25 04:00 Temperature 97.7 F Pulse Rate 87 82 89 Respiratory Rate 18 Blood Pressure 137/72 Pulse Oximetry 95 Oxygen Delivery 09/14/25 06:00 Temperature 97.6 F Pulse Rate 99 Respiratory Rate 18 Blood Pressure 162/82 H Pulse Oximetry 95 Oxygen Delivery Intake/Output Intake/Output: Intake & Output 09/11/25 09/12/25 09/13/25 09/14/25 23:59 23:59 23:59 23:59 Intake Total 700 2568 150 Output Total 725 900 Balance -25 1668 150 Meds/Results Medications: Active Medications Generic Name Dose Route Start Last Admin Trade Name Freq PRN Reason Stop Dose Admin Hydrocodone Bitart/Acetaminophen 1 tab 09/12/25 17:58 Hydrocodone/Acetaminophen (*Crx) 5-325 Mg Tablet PO Q4H PRN Pain Rated 4-6 Al Hydrox/Mg Hydrox/Simethicone 30 ml 09/12/25 17:58 Mag Hydrox/Al Hydrox/Simeth 30 Ml Udc PO Q6H PRN Indigestion Aspirin 325 mg 09/13/25 09:00 09/14/25 08:56 Aspirin 325 Mg Enteric Tablet PO 325 mg Q12HR MARIA TERESA Administration Atorvastatin Calcium 40 mg 09/12/25 13:55 09/14/25 08:56 Atorvastatin 40 Mg Tablet PO 40 mg DAILY MARIA TERESA Administration Citalopram Hydrobromide 20 mg 09/12/25 13:55 09/14/25 08:56 Citalopram Hydrobromide 20 Mg Tablet PO 20 mg DAILY MARIA TERESA Administration Diltiazem HCl 240 mg 09/12/25 13:55 09/14/25 08:56 Diltiazem Hcl Cd 240 Mg Cap.24hr PO 240 mg QAM MARIA TERESA Administration Hydromorphone HCl 0.5 mg 09/12/25 17:58 Hydromorphone Hcl Inj (*Crx) 1 Mg/Ml Syr IV PUSH Q2H PRN Breakthrough Pain Rated 4-6 or NPO Ibuprofen 800 mg in 200 mls @ 400 mls/hr 09/12/25 17:58 09/14/25 09:08 Caldolor 800 Mg/200 Ml IVPB 400 mls/hr Q6H PRN Administration Breakthrough Pain Rated 1-3 or NPO Naloxone HCl 0.1 mg 09/12/25 17:58 Naloxone Hcl 0.4 Mg/Ml Vial IV PUSH Q2M PRN Opiate Reversal Ondansetron HCl 4 mg 09/12/25 17:58 Ondansetron Inj 4 Mg/2 Ml Vial IV PUSH Q4H PRN Nausea And Vomiting Polyethylene Glycol 17 gm 09/13/25 09:00 09/14/25 08:56 Polyethylene Glycol 3350 17 Gm Powd.Pack PO 17 gm QAM MARIA TERESA Administration Senna/Docusate Sodium 2 tab 09/12/25 17:58 09/14/25 08:55 Senna/Docusate Sodium Tablet PO 2 tab BID MARIA TERESA Administration Radiology Results: ITS Impressions Hip/Pelvis X-Ray 09/11/25 18:12 IMPRESSION: 1. Acute impacted fracture of the femoral neck at the left hip. Osteopenic bones. Please correlate with DEXA densitometry. Chest X-Ray 09/11/25 18:15 IMPRESSION: 1. No acute pulmonary findings. Intraoperative X-Ray 09/12/25 16:45 IMPRESSION: Fluoroscopic images per orthopedic service. No radiologist present. See also operative/surgical notes for complete details. Labs Labs: Laboratory Results - last 24 hr 09/14/25 05:37 WBC 10.1 H RBC 4.18 L Hgb 12.2 Hct 37.2 MCV 89.0 MCH 29.2 MCHC 32.8 RDW 14.9 H Plt Count 149 L MPV 10.9 H Immature Gran % (Auto) 0.4 Neut % (Auto) 78.3 H Lymph % (Auto) 10.8 L [place] % (Auto) 9.4 H Eos % (Auto) 0.9 Baso % (Auto) 0.2 Lymph # (Auto) 1.09 [place] # (Auto) 1.0 H Eos # (Auto) 0.1 Baso # (Auto) 0.0 Abs Immat Gran (auto) 0.04 H Absolute Neuts (auto) 7.9 H Absolute Nucleated RBC 0.000 Nucleated RBC % 0.0 Sodium 136 L Potassium 3.6 Chloride 106 Carbon Dioxide 26 Anion Gap 4 BUN 16 Creatinine 0.68 L Estim Creat Clear Calc 59 Estimated GFR > 60 Glucose 118 H Calcium 8.3 L
[2025-09-14 12:00] VITALS: PULSE 80
--- NOTE | 2025-09-14 12:20 | PM.DS ---
DS: Admitting Diagnosis Discharge Date 09/14/25 Admitting Diagnosis - left displaced femoral neck fracture DS: Discharge Diagnosis Discharge Diagnosis (1) Left displaced femoral neck fracture: Code(s): S72.002A - Fracture of unspecified part of neck of left femur, initial encounter for closed fracture Status: Acute DS: Summary Hospital Course Reason for hospitalization: - left displaced femoral neck fracture Hospital Course: Ms. Simran Mercer, an 85-year-old woman, was admitted on 09/11/25 following a mechanical fall from her recliner, resulting in an acute impacted fracture of the left femoral neck. On presentation, she reported left hip pain without head trauma or other injuries. Initial evaluation revealed significant tenderness over the left hip, and imaging confirmed a displaced femoral neck fracture. She was admitted to the hospitalist service, and orthopedics was consulted. After discussion of treatment options, the patient elected to proceed with surgical intervention. On 09/12/25, she underwent left hip pinning without intraoperative complications. Postoperatively, Ms. Mercer was managed with multimodal pain control, DVT prophylaxis with aspirin 325 mg BID per orthopedic recommendations, and a bowel regimen. She participated in physical and occupational therapy, progressing to weight-bearing as tolerated with a walker. Laboratory monitoring showed stable hemoglobin and no significant electrolyte disturbances. She remained hemodynamically stable throughout her stay. She tolerated oral intake, maintained adequate urine output, and her surgical incision remained clean, dry, and intact. Patient was discharged in stable condition to [facility]. Status at Discharge Overall status at discharge: patient is not back to baseline Time Spent with Patient Time attestation: Total time spent providing and/or coordinating discharge services: Time spent: Greater than 30 minutes Exam Narrative: General: NAD Eyes: EOMI ENT: neck supple Cardiovascular: Regular rate and rhythm Respiratory: Clear to auscultation, respirations even and unlabored on RA Gastrointestinal: Soft, non tender Genitourinary: no suprapubic tenderness Musculoskeletal: No edema Skin: warm, dry. Surgical dressing CDI. Neuro: Alert. Psych: Mood appropriate DS: Data Data Completed and Pending Completed studies during hospitalization: ITS Impressions Hip/Pelvis X-Ray 09/11/25 18:12 IMPRESSION: 1. Acute impacted fracture of the femoral neck at the left hip. Osteopenic bones. Please correlate with DEXA densitometry. Chest X-Ray 09/11/25 18:15 IMPRESSION: 1. No acute pulmonary findings. Intraoperative X-Ray 09/12/25 16:45 IMPRESSION: Fluoroscopic images per orthopedic service. No radiologist present. See also operative/surgical notes for complete details. Labs on day of discharge: Labs from last 24 hours 09/14/25 05:37 WBC 10.1 H RBC 4.18 L Hgb 12.2 Hct 37.2 MCV 89.0 MCH 29.2 MCHC 32.8 RDW 14.9 H Plt Count 149 L MPV 10.9 H Immature Gran % (Auto) 0.4 Neut % (Auto) 78.3 H Lymph % (Auto) 10.8 L [place] % (Auto) 9.4 H Eos % (Auto) 0.9 Baso % (Auto) 0.2 Lymph # (Auto) 1.09 [place] # (Auto) 1.0 H Eos # (Auto) 0.1 Baso # (Auto) 0.0 Abs Immat Gran (auto) 0.04 H Absolute Neuts (auto) 7.9 H Absolute Nucleated RBC 0.000 Nucleated RBC % 0.0 Sodium 136 L Potassium 3.6 Chloride 106 Carbon Dioxide 26 Anion Gap 4 BUN 16 Creatinine 0.68 L Estim Creat Clear Calc 59 Estimated GFR > 60 Glucose 118 H Calcium 8.3 L Discharge Plan Discharge Attending physician on discharge: Jay Olmos Consulting providers: Gladis Cross; Brian Padgett; Jeremy Humphreys Discharging Clinician: Gladis Cross Patient Disposition: [facility] Activity: may shower, no driving and follow weight bearing status Diet: regular Wound Care Instructions: follow printed instructions Discharge Instructions: Postoperative Hip Fracture Instructions Dr. Brian Padgett [phone] Dressing to be changed daily with an island dressing beginning on post op day #2. May stop dressing changes at post op day #14. No sutures/aida will need to be removed. Can allow Dermabond to fall off naturally. Weight bearing: Weight bearing as tolerated. You may shower with your dressing but do not submerge in a bath tub. Do not drive or operate machinery until you are released by your surgeon. Do not walk without a walker for any reason until you are released by your surgeon. DVT prophylaxis x28 days post op. Continue to apply ice to the hip intermittently for additional pain relief. Protect your skin with a towel or pillow case. Continue to follow strict hip fracture precautions. Please contact our office with any questions/concerns regarding your hip at [phone]. Follow up appointment instructions indicated below. Patient Language: Slovenian Stand Alone Forms: General Discharge Information Follow-up/Referrals: Brian Padgett MD [Physician, Orthopedics] - 10/17/25 8:15 am Discharge Medications: New polyethylene glycol 3350 [Miralax] 17 gram Powder In Packet 17 g PO QAM Qty: 30 0RF sennosides-docusate sodium [Senokot-S] 8.6-50 mg Tablet 2 tab-cap PO BID Qty: 60 0RF hydrocodone-acetaminophen 5-325 mg Tablet 1 tablet PO Q4H PRN (Reason: pain) Qty: 15 0RF Continued ascorbic acid (vitamin C) [Vitamin C With Adelita Hips] 1,000 mg tablet 1 g PO DAILY cetirizine [Zyrtec] 10 mg tablet 10 mg PO DAILY PRN (Reason: allergy symptoms) acetaminophen 500 mg tablet 1,000 mg PO TID PRN (Reason: pain) 7 Days Qty: 42 0RF citalopram 20 mg tablet 20 mg PO DAILY Qty: 90 1RF Held aspirin 81 mg tablet,delayed release (DR/EC) 81 mg PO DAILY Hold Instructions: Resume on 10/11/25. No Action atorvastatin 40 mg tablet 40 mg PO DAILY diltiazem HCl 240 mg capsule,extended release 24 hr 240 mg PO BID aspirin 325 mg Tablet,Delayed Release (Dr/Ec) 325 mg PO Q12HR Rx Instructions: x28 days Date of admission: 09/11/25 21:02 Primary Care Provider: Le Wolfe Admitting Provider: Emma Deng Attending physician on admission: Emma Deng Condition: Stable
[2025-09-14 16:20] VITALS: BP 140/73; PULSE 81; RESP 16; TEMP 36.2; O2SAT 98
== END 2025-09-14 17:30 | DRG 481 ==
LOC: ANHED 19:02 → ANH3MEDSUR 21:43
PROVIDERS: Orthopaedic Surgery; Admitting Provider Internal Medicine; Emergency Provider Emergency Medicine; PCP Nurse Practitioner Family; Visit Provider Physician Assistant
PROC: 0QS734Z Reposition Left Upper Femur with Internal Fixation Device, Percutaneous Approach (ICD-10-PCS; principal; 2025-09-12 15:00)
DX: S72.002A Fracture of unspecified part of neck of left femur, initial encounter for closed fracture (principal); I48.20 Chronic atrial fibrillation, unspecified; W07.XXXA Fall from chair, initial encounter; R29.6 Repeated falls; E78.5 Hyperlipidemia, unspecified; F32.A Depression, unspecified; R53.81 Other malaise; K59.00 Constipation, unspecified; N39.3 Stress incontinence (female) (male)
CPT/HCPCS: 36415; 71045; 73502; 80048; 85025; 85610; 85730; 86850; 86900; 86901; 93005; 97116; 97161; 97166; 97530; 97535; 99199; 99285; J0690; A9270; C1713; C8929; J1100; J1741; J1885; J2003; J2270; J2405; J2704; J3010; J3290; J7030; J7120; Q9957